=== PATIENT | female | born 1990 | race Caucasian/White ===

== ENCOUNTER 2021-06-26 11:14 | Emergency (ER) | payer OTHER, BC, SELFPAY ==
[2021-06-26] VITALS (10 sets, daily range): BP systolic 118–136; BP diastolic 66–87; PULSE 92–111; RESP 16–18; TEMP 35.6–37.2; O2SAT 98–99
--- NOTE | ~2021-06-26 | CT_ITS ---
EXAMINATION: CT abdomen pelvis wo con DATE: 06/26/2021 18:55 INDICATION: Right flank pain TECHNIQUE: Computed tomography (CT) of the abdomen and pelvis was performed without intravenous contr ast. The dose-length product was 843.83 mGy-cm. Automated exposure control and iterative reconstructi on technique were employed. COMPARISON: CT dated 09/04/2013. FINDINGS: The liver, spleen, pancreas, adrenal glands and kidneys are unremarkable. Nonobstructive costa wel gas pattern. No significant vascular abnormality. No lymphadenopathy. No renal/ureteral stones. N o hydronephrosis. No free air or free fluid. Gallbladder is present. No lymphadenopathy. No acute oss eous abnormality. IMPRESSION: 1. No acute abdominal abnormality Reviewed, dictated and finalized at location A. ISSIONED SECURITY OFFICER
[2021-06-26 12:26] LABS: Add Urine Microscopic? YES; Appearance Urine Cloudy (Clear); Bilirubin Urine Negative (Negative); Blood Urine 3+ (Negative); Color Urine Red (Yellow); Glucose Urine UA Negative (Negative); Ketones Urine Negative (Negative); Leukocyte Esterase Ur 2+ LEU/UL (Negative); Nitrate Urine Negative (Negative); Protein Urine 2+ mg/dL (Negative); RBC Urine >75 /hpf (0-2); Specific Grav Ur 1.019 (1.001-1.035); Urobilinogen Urine Negative mg/dL (<2.0); WBC Urine 31-50 /hpf
--- NOTE | 2021-06-26 19:40 | ED.GENADULT ---
HPI - General Adult General Chief complaint: Urogenital-Female Stated complaint: Blood in Urine Time Seen by Provider: 06/26/21 18:11 Source: patient Mode of arrival: ambulatory Limitations: no limitations History of Present Illness HPI narrative: Patient 30-year-old female with chief complaint of urinary frequency and urgency and hematuria that she noticed today after waking up around 4 AM. Patient states that after noticing hematuria she began feeling a little off. Patient states that she also began having pain to her right flank. Patient denies fever, chills, vomiting, diarrhea. Patient denies history of kidney stones or frequent urinary tract infections. Patient reports being able to ambulate without issue. Patient does not have a urinary retention. Related Data Home Medications Medication Instructions Recorded Confirmed hydroxyzine HCl 06/26/21 sertraline mg 06/26/21 Allergies Allergy/AdvReac Type Severity Reaction Status Date / Time Sulfa (Sulfonamide Allergy Unknown Verified 05/02/19 09:55 Antibiotics) Review of Systems Review of Systems: CONSTITUTIONAL: Denies fever, chills, or sweats. EYES: Denies visual changes, redness, or discharge. ENT: Denies rhinorrhea, congestion, sore throat, or otalgia. CARDIOVASCULAR: Denies chest pain, palpitations, or edema. RESPIRATORY: Denies cough or dyspnea. GASTROINTESTINAL: Denies abdominal pain, nausea, vomiting, or diarrhea. GENITOURINARY: Reports hematuria. SKIN: Denies rash or itching. MUSCULOSKELETAL: Denies back pain, joint pain, or myalgia. NEUROLOGIC: Denies headache, numbness, dizziness, or weakness. PSYCHIATRIC: Denies anxiety or depression. Exam Narrative: GENERAL: Well-appearing, well-nourished, and in no acute distress. HEAD: Normocephalic, atraumatic. EYES: PERRLA and EOMI. CHEST: Clear to auscultation. No respiratory distress. No wheezes rales or rhonchi HEART: Regular rate and rhythm. No murmur heard. Normal peripheral pulses. ABDOMEN: Soft, nontender, nondistended, normal active bowel sounds. EXTREMITIES: Normal range of motion. No edema. SKIN: Warm, dry, no rash. NEURO: No focal deficits. Alert and oriented x3. PSYCH: Normal mood and affect. Course Vital Signs Vital signs: Vital Signs Temperature 96.1 F L 06/26/21 11:48 Pulse Rate 104 H 06/26/21 11:48 Respiratory Rate 18 06/26/21 11:48 Blood Pressure 136/87 06/26/21 11:48 Pulse Oximetry 98 06/26/21 11:48 Temperature 99.0 F 06/26/21 15:14 Pulse Rate 92 06/26/21 20:25 Respiratory Rate 16 06/26/21 20:25 Blood Pressure 118/68 06/26/21 20:25 Pulse Oximetry 99 06/26/21 20:25 Medical Decision Making MDM Narrative Medical decision making narrative: Patient is nontoxic in appearance. Patient not having nausea or vomiting. Patient is not having any intense abdominal pain. Patient not having urinary retention. Patient will be given Levaquin here prescribed Levaquin for 5 days for home. [id number] be cultured and she has been instructed to follow-up with her primary care in 2 to 3 days for urine culture report and reevaluation. Patient has been given strict return to ER instructions if she has any worsening discomfort, urinary retention, fever, chills, abdominal pain or any other emergent symptoms. Patient request Diflucan as urinary tract infection antibiotics caused her to have a yeast infection. Vital Signs Vital Signs: Vital Signs Temperature 96.1 F L 06/26/21 11:48 Pulse Rate 104 H 06/26/21 11:48 Respiratory Rate 18 06/26/21 11:48 Blood Pressure 136/87 06/26/21 11:48 Pulse Oximetry 98 06/26/21 11:48 Temperature 99.0 F 06/26/21 15:14 Pulse Rate 92 06/26/21 20:25 Respiratory Rate 16 06/26/21 20:25 Blood Pressure 118/68 06/26/21 20:25 Pulse Oximetry 99 06/26/21 20:25 Lab Data Labs: Lab Results 06/26/21 Range/Units 12:04 Urine Color Red H (Yellow) Urine Appearance Cloudy H (Clear) Uri
[2021-06-26] MEDS: levoFLOXacin 750 MG TABLET PO (20:19)
== END 2021-06-26 20:26 | disposition home or self-care (01) ==
PROVIDERS: Physician Assistant; Emergency Provider Emergency Medicine
DX: N30.01 Acute cystitis with hematuria (principal)
CPT/HCPCS: 74176; 81001; 81025; 87086; 87088; 99284; A9270

== ENCOUNTER 2021-08-09 10:10 | Emergency (ER) | payer OTHER, BC, SELFPAY ==
[2021-08-09 10:34] VITALS: BP 123/71; PULSE 96; RESP 18; TEMP 36.7; O2SAT 99
--- NOTE | 2021-08-09 10:34 | ED.URI ---
HPI - URI/Sore Throat General Chief Complaint: Upper Respiratory Infection Stated Complaint: fever/flu like symptoms Time Seen by Provider: 08/09/21 10:39 Source: patient, RN notes reviewed and old records reviewed Mode of arrival: ambulatory Limitations: no limitations History of Present Illness HPI Narrative: 30 year old female presents to [facility] care with complaints of sore throat,nasal congestion and drainage, dry cough, fevers up to 103.4F highest recorded fever with chills, sweats, and body aches. Patient reports that she took home COVID test last night and this morning with both results negative. Patient reports that she has had 2 COVID immunizations but has not had Booster or flu immunization this year. Patient reports history of strep throat in the past with 2 episodes this past summer. Patient states pain with swallowing and pain to glands in her neck. Patient has been taking Tylenol and Aleve for pain and fevers. MD elicited complaint: fever, cough, sore throat, rhinorrhea, nasal congestion and other (body aches) Pertinent past history: other (strep) Onset (ago): day(s) (3 days) Consistency: progressively worsening Description of mucous: clear Able to tolerate fluids by mouth: Yes Exacerbating factors: swallowing Relieving factors: NSAID Treatments prior to arrival: acetaminophen and other (Aleve) Related Data Home Medications Medication Instructions Recorded Confirmed hydroxyzine HCl 06/26/21 sertraline 150 mg PO DAILY 06/26/21 Allergies Allergy/AdvReac Type Severity Reaction Status Date / Time Sulfa (Sulfonamide Allergy Unknown Swelling Verified 08/09/21 10:32 Antibiotics) Review of Systems Review of Systems: CONSTITUTIONAL: Positive fever, chills, or sweats. EYES: Denies visual changes, redness, or discharge. ENT: Positive for rhinorrhea, congestion, sore throat, no otalgia. CARDIOVASCULAR: Denies chest pain, palpitations, or edema. RESPIRATORY: Positive for dry cough no dyspnea. GASTROINTESTINAL: Denies abdominal pain, nausea, vomiting, or diarrhea. GENITOURINARY: Denies dysuria or hematuria. SKIN: Denies rash or itching. MUSCULOSKELETAL: Denies back pain, joint pain, positive for body aches NEUROLOGIC: Denies headache, numbness, or weakness. PSYCHIATRIC: Denies anxiety or depression. All systems reviewed & are unremarkable except as noted in HPI and below PMFSH Past Medical History Medical History (Updated 08/09/21 @ 12:11 by Leatha Tracy NP) Anxiety and depression Diverticulitis IBS (irritable bowel syndrome) Surgical History Surgical History (Updated 08/09/21 @ 11:51 by Leatha Tracy NP) History of dental surgery Previous section X2 Family History Family History Father Hypertension Mother Hypertension Grandparent Diabetes mellitus Cerebrovascular accident Acute myocardial infarction Other Family hx of colon cancer Social History Social History (Updated 08/09/21 @ 11:47 by Leatha Tracy NP) Smoking status: Never smoker Alcohol intake: never Substance use: never Living arrangements: with family Gender identity (if verbalized by the patient): Female Comments At time of signature, agree with nursing past medical, surgical, social and family history. There is no relevant family history pertinent to the presenting complaint Exam Narrative: GENERAL Ill-appearing, well-nourished, obese and in no acute distress. HEAD: Normocephalic, atraumatic. EYES: PERRLA and EOMI. ENT: Nares patent with clear rhinorrhea no epistaxis. Mucous membranes moist.TM's normal with good light reflex, throat red, swollen tonsils with white lesions to right tonsil noted, painful swallowing, uvula enlarged and red NECK: Supple. lymphadenopathy CHEST: Clear to auscultation. No respiratory distress.SAO2 99% on room air HEART: Regular rate and rhythm. No murmur heard. Normal peripheral pulses. ABDOMEN: Soft,
== END 2021-08-09 11:51 | disposition home or self-care (01) ==
PROVIDERS: Emergency Provider Registered Nurse
DX: J03.90 Acute tonsillitis, unspecified (principal); F41.9 Anxiety disorder, unspecified; F32.9 Major depressive disorder, single episode, unspecified
CPT/HCPCS: 87081; 87426; 87804; 87880; 99213; C9803; G0463

== ENCOUNTER 2021-08-11 12:27 | Emergency (ER) | payer OTHER, SELFPAY ==
[2021-08-11 12:38] VITALS: BP 109/63; PULSE 99; RESP 16; TEMP 36.9; O2SAT 99
--- NOTE | 2021-08-11 13:12 | ED.URI ---
HPI - URI/Sore Throat General Chief Complaint: Upper Respiratory Infection Stated Complaint: Sore Throat/Fever Time Seen by Provider: 08/11/21 13:12 Source: patient, RN notes reviewed and old records reviewed Mode of arrival: ambulatory Limitations: no limitations History of Present Illness HPI Narrative: 30-year-old female who presents to [facility] Care with complaints of continued sore throat, fevers, and nasal congestion with drainage, pain to her neck with swelling to her glands in her neck also some ear pressure. Patient states that her throat is so sore she can hardly swallow and has been taking antibiotic that was prescribed for tonsillitis on Saturday and also Tylenol and Ibuprofen. Patient's initial strep screen was negative and culture returned today also negative. Patient reports that she is still running fevers of 103F at intervals and this morning her temperature was 102F at 0930 and she took Ibuprofen with patient afebrile in triage. MD elicited complaint: fever and sore throat Related Data Home Medications Medication Instructions Recorded Confirmed hydroxyzine HCl 25 mg PO DAILY 06/26/21 08/11/21 sertraline 150 mg PO DAILY 06/26/21 08/11/21 Allergies Allergy/AdvReac Type Severity Reaction Status Date / Time Sulfa (Sulfonamide Allergy Unknown Swelling Verified 08/11/21 12:51 Antibiotics) Review of Systems Review of Systems: CONSTITUTIONAL: Positive fever, chills, or sweats. EYES: Denies visual changes, redness, or discharge. ENT positive rhinorrhea, congestion, sore throat,pressure to ears. CARDIOVASCULAR: Denies chest pain, palpitations, or edema. RESPIRATORY: Denies cough or dyspnea. GASTROINTESTINAL: Denies abdominal pain, nausea, vomiting, or diarrhea. GENITOURINARY: Denies dysuria or hematuria. SKIN: Denies rash or itching. MUSCULOSKELETAL: Denies back pain, joint pain, or myalgia. NEUROLOGIC: Denies headache, numbness, or weakness. PSYCHIATRIC: Positive history anxiety or depression. All systems reviewed & are unremarkable except as noted in HPI and below PMFSH Past Medical History Medical History (Updated 08/11/21 @ 13:39 by Leatha Tracy NP) Anxiety and depression Diverticulitis IBS (irritable bowel syndrome) Surgical History Surgical History (Updated 08/09/21 @ 11:51 by Leatha L. Demarcus, FARM MACHINERY ERECTOR) History of dental surgery Previous section X2 Family History Family History Father Hypertension Mother Hypertension Grandparent Diabetes mellitus Cerebrovascular accident Acute myocardial infarction Other Family hx of colon cancer Social History Social History (Updated 08/09/21 @ 11:47 by Leatha Tracy NP) Smoking status: Never smoker Alcohol intake: never Substance use: never Gender identity (if verbalized by the patient): Female Comments At time of signature, agree with nursing past medical, surgical, social and family history. There is no relevant family history pertinent to the presenting complaint Exam Narrative: GENERAL: Well-appearing, well-nourished, obese and in no acute distress. HEAD: Normocephalic, atraumatic. EYES: PERRLA and EOMI. ENT: Nares red with clear rhinorrhea or epistaxis. Mucous membranes moist.TM s normal with good light reflex, Throat red with white exudates to tonsils with swelling of tonsils and painful swallowing NECK: Supple. lymphadenopathy with increase pain especially on right side of neck CHEST: Clear to auscultation. No respiratory distress.no cough noted or any shortness of breath SAO2 99% on room air HEART: Regular rate and rhythm. No murmur heard. Normal peripheral pulses. ABDOMEN: Soft, nontender, nondistended, normal active bowel sounds. EXTREMITIES: Normal range of motion. No edema. SKIN: Warm, dry, no rash. NEURO: No focal deficits. Alert and oriented x3. Course Course Level of Care: Express Care Visit Vital Signs Vital signs: Vital Signs Temp
== END 2021-08-11 13:37 | disposition home or self-care (01) ==
PROVIDERS: Emergency Provider Registered Nurse
DX: J03.90 Acute tonsillitis, unspecified (principal); Z20.822 Contact with and (suspected) exposure to COVID-19; F41.9 Anxiety disorder, unspecified; F32.A Depression, unspecified
CPT/HCPCS: 36416; 86308; 87426; 99213; C9803; G0463

== ENCOUNTER 2022-10-18 17:38 | Emergency (ER) | payer OTHER, SELFPAY ==
[2022-10-18 17:49] VITALS: BP 119/67; PULSE 120; RESP 24; TEMP 36.9; O2SAT 98
--- NOTE | 2022-10-18 17:58 | ED.URI ---
HPI - URI/Sore Throat General Chief Complaint: Upper Respiratory Infection Stated Complaint: flu like symptoms Time Seen by Provider: 10/18/22 17:58 Source: patient Mode of arrival: ambulatory Limitations: no limitations History of Present Illness HPI Narrative: Patient is a 32-year-old female presents with 5 days of joint pain, body aches, fever, chills, fatigue along with sore throat that started yesterday. Patient has been taken Tylenol for fever of 101. Patient states she just got back from [place]. The patient has 2 small children but they are not sick at this time. Denies any bug bites, headache, neck pain, congestion, ear pain, cough. Related Data Home Medications Medication Instructions Recorded Confirmed sertraline 100 mg tablet 150 mg PO DAILY 06/26/21 10/18/22 drospirenone 3 mg-ethinyl 1 tablet PO DAILY 10/18/22 10/18/22 estradiol 0.02 mg tablet (Loryna (28)) Allergies Allergy/AdvReac Type Severity Reaction Status Date / Time Sulfa (Sulfonamide Allergy Unknown Swelling Verified 10/18/22 17:59 Antibiotics) Review of Systems Review of Systems: All systems reviewed & are unremarkable except as noted in HPI and below Constitutional: Constitutional: Reports body ache(s), Reports chills, Reports fatigue, Reports fever(s), Denies headache(s), Reports malaise and Denies weakness Eyes: Eyes: Denies loss of vision ENT: Denies otalgia, Denies headache(s), Denies nasal congestion, Denies sinus pain and Reports sore throat Cardiovascular: Cardiovascular: Denies chest pain, Denies irregular heart rhythm and Denies dyspnea Respiratory: Respiratory: Denies cough and Denies dyspnea Gastrointestinal: Gastrointestinal: Denies abdominal pain, Denies melena, Denies hematochezia, Denies diarrhea, Denies nausea and Denies vomiting Musculoskeletal: Musculoskeletal: Denies back pain, Denies myalgias and Denies arthralgias Integumentary/Breasts: Skin/Breast: Denies pruritus and Denies rash Neurologic: Denies headache(s), Denies loss of vision and Denies weakness Psychiatric: Psychiatric: Reports no additional psychiatric complaints PMFSH Past Medical History Medical History (Updated 10/18/22 @ 18:31 by Georgia Bourgeois, GEORGIE) Anxiety and depression Diverticulitis IBS (irritable bowel syndrome) Surgical History Surgical History (Updated 08/09/21 @ 11:51 by Leatha Tracy NP) History of dental surgery Previous section X2 Family History Family History Father Hypertension Mother Hypertension Grandparent Diabetes mellitus Cerebrovascular accident Acute myocardial infarction Other Family hx of colon cancer Social History Social History (Updated 08/09/21 @ 11:47 by Leatha Tracy NP) Smoking status: Never smoker Alcohol intake: never Substance use: never Living arrangements: with family Gender identity (if verbalized by the patient): Female Comments At time of signature, agree with nursing past medical, surgical, social and family history. There is no relevant family history pertinent to the presenting complaint. Exam Const: General: cooperative, healthy appearing, comfortable, no acute distress and well nourished Nutritional Appearance: well nourished Orientation/consciousness: patient oriented x3 Limitations: no limitations HENMT: Head: normal to inspection, normocephalic and atraumatic Ears: hearing grossly normal bilaterally, external ears normal and TM's normal bilaterally Face/Nose/Sinus: Normal external nose present, Normal nares present, Normal nasal mucous membranes and turbinates present, Normal septum present, normal facial exam, sinuses nontender and face symmetric Face and sinus: normal facial exam, sinuses nontender and face symmetric Mouth: Yes Normal oral and palatal mucosa present, Yes lip normal and Yes moist mucous membranes Teeth and gingiva: dentition normal Throat: uvula midl
== END 2022-10-18 18:37 | disposition home or self-care (01) ==
PROVIDERS: Emergency Provider Nurse Practitioner Family; PCP Physician Assistant
DX: J02.9 Acute pharyngitis, unspecified (principal); Z20.822 Contact with and (suspected) exposure to COVID-19; F41.9 Anxiety disorder, unspecified; F32.A Depression, unspecified
CPT/HCPCS: 87426; 87804; 87880; 99213; C9803; G0463

== ENCOUNTER 2023-05-29 08:10 | Emergency (ER) | payer OTHER, SELFPAY ==
--- NOTE | 2023-05-29 08:15 | ED.GENADULT ---
HPI - General Adult General Chief complaint: Neck Pain/Injury Stated complaint: Neck Pain,Rt Shoulder Pain Source: patient and RN notes reviewed History of Present Illness HPI narrative: 32 yo F presents to urgent care with complaints of right lateral neck pain that radiates to right posterior/upper shoulder and down right arm. Pt states this has been going on for 4 days but last night in the middle of the night, it got worse. Pt reports weakness in her right arm. Pt states she was hanging curtains, using a drill above her head prior to this starting. Pt denies any specific injury. Pt has been taking ibuprofen and her left over cyclobenzaprine, which she only has 2 pills left, with moderate relief. Related Data Home Medications Medication Instructions Recorded Confirmed cetirizine 10 mg capsule (Zyrtec) 10 mg PO DAILY PRN allergies 10/24/22 05/29/23 ergocalciferol (vitamin D2) 1,250 1,250 mcg PO DAILY 10/24/22 05/29/23 mcg (50,000 unit) capsule Allergies Allergy/AdvReac Type Severity Reaction Status Date / Time Sulfa (Sulfonamide Allergy Unknown Swelling Verified 04/26/23 16:21 Antibiotics) Review of Systems Review of Systems: CONSTITUTIONAL: Denies fever, chills, or sweats. EYES: Denies visual changes, redness, or discharge. ENT: Denies otalgia and sore throat CARDIOVASCULAR: Denies chest pain, palpitations, or edema. RESPIRATORY: Denies cough or dyspnea. GASTROINTESTINAL: Denies abdominal pain, nausea, vomiting, or diarrhea. GENITOURINARY: Denies dysuria or hematuria. SKIN: Denies rash or itching. NEUROLOGIC: Denies headache, numbness Pertinent positives per HPI. [facility] Past Medical History Medical History Anxiety and depression IBS (irritable bowel syndrome) Major depression in partial remission Surgical History Surgical History History of dental surgery Previous section X2 Family History Family History Father Hypertension Mother Hypertension Grandparent Diabetes mellitus Cerebrovascular accident Acute myocardial infarction Other Family hx of colon cancer Social History Social History (Updated 04/28/23 @ 09:32 by KIARA Salgado) Smoking status: Current some day smoker Tobacco type: e-cigarettes/vaping Alcohol intake: former Drinks per week: 0 Substance use: former Substance use type: marijuana Lack of Transportation: No Lack of Food: Never True Current Housing: I Have Housing Concerned About Future Housing: No Difficulty Paying Gas/Electric Bills: No Difficulty Paying for Meds: No Currently Unemployed: YES Education: Trade/Vocational Certificate Difficulty w/ Childcare or Family Care: No Living arrangements: with family Occupation/Education: student Gender identity (if verbalized by the patient): Female Sexual Orientation (if Verbalized by the Patient): Straight or Heterosexual Comments At the time of my signature, I reviewed and agree with the nursing past medical, surgical, social, and family history. There is no relevant family history pertinent to the patient complaint. Exam Narrative: GENERAL: This is a well-nourished, well-developed patient, in no apparent distress. HEAD: normocephalic, atraumatic. EYES: Sclera clear/white. Vision is grossly intact. EARS: External ears normal, auditory canals clear and without drainage, TMs normal without perforation. Hearing grossly intact. NOSE: External nose normal with no obvious nasal discharge, nares without redness, no rhinorrhea. THROAT: Mucous membranes moist, posterior pharynx clear. NECK: Neck supple, without lymphadenopathy, masses or thyromegaly. Pt limited ROM with neck in all directions due to pain in the right lateral neck. CARDIOVASCULAR: Regular rate and rhythm without murmurs, gallops,
[2023-05-29 08:22] VITALS: BP 123/72; PULSE 84; RESP 18; TEMP 36.2; O2SAT 99
[2023-05-29] MEDS: predniSONE 20 MG TABLET 60 MG PO (08:48)
== END 2023-05-29 08:54 | disposition home or self-care (01) ==
PROVIDERS: Emergency Provider Nurse Practitioner Family; PCP Physician Assistant
DX: M54.12 Radiculopathy, cervical region (principal); F17.290 Nicotine dependence, other tobacco product, uncomplicated; Z79.899 Other long term (current) drug therapy
CPT/HCPCS: 99213; G0463; J7512

== ENCOUNTER 2023-08-26 08:39 | Outpatient (CLI) | payer OTHER, SELFPAY ==
--- NOTE | 2023-09-10 19:07 | WPDHOMESLEEP ---
Sleep Study - Home Unattended Date of Study: 08/26/23 Ordering Provider: KIARA Salgado Interpreting Provider: Mari Zaragoza MD Home Sleep Study Type: Watch PAT Height: 1.7 m Weight: 109.316 kg Body Mass Index: 37.7 Neck Circumference (inches): 15 [place]: 9 Reason for Sleep Study Harsh loud snoring, restless sleep Sleep History Starla Monahan is a 33-year-old woman with very restless sleep and loud snoring. She has tried melatonin to help her stay asleep but this is not helping. She does not have difficulty falling asleep simply staying asleep. She is always tired and never feels rested. She has used nasal strips to help with snoring without improvement. She is usually exhausted by midmorning. There is a family history of sleep issues, her father has obstructive sleep apnea and her sister has insomnia. She rarely awakens from sleep short of breath. She rarely wakes at night with heartburn, belching or coughing.??She constantly snores, and constantly snores loudly enough that others complain. She frequently has trouble sleeping when she has a cold. She occasionally wakes up gasping for breath during the night. She constant has breathing problems at night. She constantly sweats excessively at night. She frequently notices her heart pounding or beating irregularly during the night. She frequently falls asleep during the day. She occasionally falls asleep involuntarily, never falls asleep while driving. She rarely experiences loss of muscle tone with strong emotion. she constantly has daytime difficulties due to excessive sleepiness. She rarely feels paralyzed on waking or falling asleep. She constantly experiences vivid dreams upon waking or falling asleep. She never feels afraid of going to sleep. She frequently has nightmares. She constantly recalls her dreams. She frequently has thoughts racing through her mind. She occasionally feels sad or depressed. She frequently feels anxiety. She frequently notices parts of her body jerk. She occasionally kicks during the night. She occasionally feels crawling or aching feelings in her legs. She occasionally feels leg pain at night. She rarely has morning jaw pain, and rarely grinds her teeth at night. She occasionally feels bothered by pain during the day, is rarely awakened by pain during the night. She frequently wakes up feeling stiff in the morning, frequently wakes feeling sore or achy in the morning. She occasionally awakens with pain in her neck, spine, or joints. she has memory concentration difficulties, headaches, bowel disturbances, fatigue and nightmares. Her snoring is so loud that her significant other does not want to sleep in the same bed Normal bedtime is 9:30 p.m., falling asleep within 15-30 minutes, waking 3-4 times during the night. While awake, she checks the clock, turns over and tries to return to sleep which she is usually able to do within 15 minutes. Her normal wake time is 4:00 a.m. on weekdays and weekends. On weekends, she stays awake a little longer, goes to bed between 10:00 p.m. and 11:00 p.m. She reports getting 5 hours of sleep per night. She does not take naps in the afternoon or evening. A short nap lasting 10-15 minutes is not refreshing. Most of the time she feels adequate on waking but shortly thereafter she feels exhausted. She feels better in the morning compared to other times of day. Habits:??Tobacco: Quit 10 years ago Caffeine: 2 cups per day. Alcohol: none Recreational substances: none PMFSH Past Medical History Medical History Anxiety and depression IBS (irritable bowel syndrome) Major depression in partial remission Surgical History Surgical History History of dental surgery Previous section X2 Family History Family History Father Hypertensio
[2023-09-10 19:18] VITALS: BMI 37.7
== END 2023-08-27 07:30 | disposition home or self-care (01) ==
LOC: ANHCSM 08:41
PROVIDERS: PCP Family Medicine; Visit Provider Physician Assistant
DX: G47.33 Obstructive sleep apnea (adult) (pediatric) (principal); R06.83 Snoring; F39 Unspecified mood [affective] disorder
CPT/HCPCS: 95800

== ENCOUNTER 2023-11-06 08:11 | Emergency (ER) | payer OTHER, SELFPAY ==
[2023-11-06 08:19] VITALS: BP 107/61; PULSE 90; RESP 16; TEMP 36.5; O2SAT 99
--- NOTE | 2023-11-06 08:47 | ED.URI ---
HPI - URI/Sore Throat General Chief Complaint: Upper Respiratory Infection Stated Complaint: Sinus Pressure,Cough,Congestion Time Seen by Provider: 11/06/23 08:47 Source: patient Mode of arrival: ambulatory Limitations: no limitations History of Present Illness HPI Narrative: 33-year-old female presents with complaint of nasal congestion, sinus pressure, pain and pressure to bilateral ears, fatigue for 5 days. Afebrile. Patient takes Zyrtec and uses Flonase daily. States yesterday she lost her sense of smell and is concerned she may have COVID. Denies nausea vomiting diarrhea. All systems reviewed and negative except as noted above. Related Data Home Medications Medication Instructions Recorded Confirmed cetirizine 10 mg capsule (Zyrtec) 10 mg PO DAILY PRN allergies 10/24/22 11/06/23 ergocalciferol (vitamin D2) 1,250 1,250 mcg PO DAILY 10/24/22 11/06/23 mcg (50,000 unit) capsule Allergies Allergy/AdvReac Type Severity Reaction Status Date / Time Sulfa (Sulfonamide AdvReac Intermediate Swelling Verified 11/06/23 08:16 Antibiotics) Review of Systems Review of Systems: CONSTITUTIONAL: Denies fever, chills, or sweats. EYES: Denies visual changes, redness, or discharge. ENT: Reports rhinorrhea, congestion, sore throat, and otalgia. CARDIOVASCULAR: Denies chest pain, palpitations, or edema. RESPIRATORY: reports cough. Denies dyspnea. GASTROINTESTINAL: Denies abdominal pain, nausea, vomiting, or diarrhea. GENITOURINARY: Denies dysuria or hematuria. SKIN: Denies rash or itching. MUSCULOSKELETAL: Denies back pain, joint pain, or myalgia. NEUROLOGIC: Denies headache, numbness, or weakness. PSYCHIATRIC: Denies anxiety or depression. All other systems reviewed are negative, except as documented in HPI. [facility] Past Medical History Medical History Anxiety and depression IBS (irritable bowel syndrome) Major depression in partial remission Surgical History Surgical History History of dental surgery Previous section X2 Family History Family History Father Hypertension Mother Hypertension Grandparent Diabetes mellitus Cerebrovascular accident Acute myocardial infarction Other Family hx of colon cancer Social History Social History (Updated 09/16/23 @ 11:15 by Ann Marie Schmidt MA) Smoking status: Current some day smoker Tobacco type: e-cigarettes/vaping Alcohol intake: former Drinks per week: 0 Substance use: former Substance use type: marijuana Do You Feel Safe in your Home?: Yes Lack of Transportation: No Lack of Food: Never True Current Housing: I Have Housing Concerned About Future Housing: No Difficulty Paying Gas/Electric Bills: No Difficulty Paying for Meds: No Currently Unemployed: YES Education: Trade/Vocational Certificate Difficulty w/ Childcare or Family Care: No Living arrangements: with family Occupation/Education: student Gender identity (if verbalized by the patient): Female Sexual Orientation (if Verbalized by the Patient): Straight or Heterosexual Comments At time of signature, agree with nursing past medical, surgical, social and family history. There is no relevant family history pertinent to the presenting complaint. Exam Narrative: GENERAL: This is a well-nourished, well-developed patient, in no apparent distress. HEAD: normocephalic, atraumatic. EYES: PERRL. Sclera clear/white. Vision is grossly intact. EARS: External ears normal, auditory canals clear and without drainage, yellowish fluid to bilateral TMs with bulging And mild erythema. No perforation bilaterally.. Hearing grossly intact. NOSE: External nose normal with congestion, erythema and swelling to bilateral nares. Ethmoid and maxillary sinus tenderness on palpation bilaterally. T
== END 2023-11-06 09:15 | disposition home or self-care (01) ==
PROVIDERS: Emergency Provider Nurse Practitioner Family; PCP Family Medicine
DX: H65.03 Acute serous otitis media, bilateral (principal); J30.9 Allergic rhinitis, unspecified; Z20.822 Contact with and (suspected) exposure to COVID-19; F17.290 Nicotine dependence, other tobacco product, uncomplicated
CPT/HCPCS: 87426; 99213; G0463

== ENCOUNTER 2024-09-04 08:15 | Emergency (ER) | payer OTHER, SELFPAY ==
--- OUTSIDE RECORDS SUMMARY | 2024-09-04 08:35 | XMS_ITS | Encounter Summary ---
Author Organization [facility] Address [address] [place] [address] Phone Care Team Providers Care Automatic Blocker Name Role Phone No, Physician Primary Care Provider Gracie Lee Primary Care Provider [phone] Encounter Details Date Type Department Care Team (Latest Contact Info) Description 06/10/2017 Orders Only [facility] CONVERSION Scanning, Provider Social History Tobacco Use Types Packs/Day Years Used Date Smoking Tobacco: Never Comments Unknown Sex and Gender Information Value Date Recorded Sex Assigned at Not on file Legal Sex Female 10:12 AM EVENING OR NIGHT NURSE SUPERVISOR Gender Identity Not on file Sexual Orientation Not on file documented as of this encounter Plan of Treatment Not on file documented as of this encounter Procedures Procedure Name Priority Date/Time Associated Diagnosis Comments OBSTETRIC/GYNECOLOGY ULTRASONOGRAPHY REPORT 07/04/2017 4:19 PM EVENING OR NIGHT NURSE SUPERVISOR OBSTETRIC/GYNECOLOGY ULTRASONOGRAPHY REPORT 06/10/2017 9:36 AM EVENING OR NIGHT NURSE SUPERVISOR documented in this encounter Results * OBSTETRIC/GYNECOLOGY ULTRASONOGRAPHY REPORT (07/04/2017 4:19 PM EVENING OR NIGHT NURSE SUPERVISOR) Anatomical Region Laterality Modality Ultrasound us Provider Scanning IMG OB US PROCEDURES Final Res ult * OBSTETRIC/GYNECOLOGY ULTRASONOGRAPHY REPORT (06/10/2017 9:36 AM EVENING OR NIGHT NURSE SUPERVISOR) Anatomical Region Laterality Modality Ultrasound us Provider Scanning IMG OB US PROCEDURES Final Res ult documented in this encounter Visit Diagnoses Not on filedocumented in this encounter Care Teams Automatic Blocker Relationship Specialty Start Date End Date No, Physician PCP - General 06/10/17 01/19/24 Gracie Lee PA [address] [place] [address] PCP - General Family Medicine 01/20/24 documented as of this encounter
--- OUTSIDE RECORDS SUMMARY | 2024-09-04 08:35 | XMS_ITS | Referral Summary ---
Author Organization [facility] Address [address] [place] [address] Care Team Providers Care Operations Trainer Name Role Phone Gracie Lee PA-C Primary Care Provider [phone] Source Comments [facility],non-owned Affiliates and Associated Physician Practices is amultiple site organization consisting of ambulatory clinics and hospital sitesin [place], [place], [place] and [place]. This disclosure is being madepursuant to the Care Everywhere program and may not contain all information available regarding this patient. Last updated 18.[facility] Allergies Active Allergy Reactions Criticality Noted Date Comments [place] Oil Rash Medium 10/10/2017 [place] Dust Mite Extract Rash Medium 10/10/2017 Sulfa Drugs Swelling Low 04/30/2012 Medications * Be aware that medications may not be up to date on this document. Alwaysverify current medications with the patient. Medication Sig Dispensed Refills Start Date End Date Status hydrOXYzine hcl (ATARAX) 25 MG tabletIndications:Anx iety Take 1 (one) tablet by mouth 4 times daily as needed Reasons: Feeling Anxious 30 tablet 12/07/2020 Active sertraline (ZOLOFT) 50 MG tabletIndications:Anx iety and depression Take 1 (one) tablet by mouth once daily With one 100 mg tab to = 150 mg dose 90 tablet 1 01/23/2022 Active sertraline (ZOLOFT) 100 MG tabletIndications:Anx iety and depression Take 1 (one) tablet by mouth once daily With one 50mg tab to =150mg dose 90 tablet 1 01/23/2022 Active vitamin D, ergocalciferol, (Drisdol) 1.25 MG (50669 UT) capsule Take 1 (one) capsule by mouth every 7 days 02/02/2022 Active drospirenone-ethinyl estradiol (Meme) 3-0.02 MG tablet Take 1 (one) tablet by mouth once daily 09/08/2023 Active buPROPion XL 24hr (Wellbutrin-XL) 150 MG tablet Take 1 (one) tablet by mouth every morning 09/03/2023 Active cetirizine (ZyrTEC) 10 MG tablet Take 1 (one) tablet by mouth once daily Active fluticasone propionate (Flonase) 50 MCG/ACT nasal spray [place] 2 (two) sprays into each nostril once daily Active ibuprofen (Motrin) 600 MG tablet Take 1 (one) tablet by mouth every 6 hours as needed for Pain Active azelastine (Astelin) 0.1 % nasal sprayIndications:Nasa l obstruction [place] 1 (one) spray into each nostril 2 times daily 90 mL 4 09/19/2023 Active Active Problems Problem Noted Date Diagnosed Date Dysfunction of both eustachian tubes 05/14/2021 Assessment & Plan (05/14/2021 12:17 PM CDT): Sudafed 4 hour as needed Ibuprofen 2 tabs every 6 hours as needed. Drink fluids Enlarged lymph node 03/28/2020 Assessment & Plan (03/28/2020 1:51 PM CDT): Unclear etiology. Size is relatively large and nodule is relatively firm. Will get ultrasound and labs. Consider biopsy, especially pending ultrasound results. NICOLE III (cervical intraepith elial neoplasia grade III) with severe dysplasia 11/11/2017 Family history of other specified eye disorder 1 Overview (10/14/2017): Mari's - father Resolved Problems Problem Noted Date Diagnosed Date Resolved Date and not yet delivered 11/11/2017 09/02/2019 Immunizations Name Administration Dates Next Due INFLUENZA VACCINE 06/13/2019 Rho D Immune Globulin 11/13/2017 iNFLUENZA VACCINE, RECOM-AMIN, QUADR. (FLUBLOCK QUADRIVALENT; 18Y+) (RIV4) 03/28/2020 Social History Tobacco Use Types Packs/Day Years Used Date Smoking Tobacco: Former Cigarettes Smokeless Tobacco: Never Tobacco Cessation:Counseling Given: Not Answered Comments:lightly with period remission Alcohol Use Standard Drinks/Week Comments Not Currently 0.8 (1 standard drink = 0.6 oz p ure alcohol) rare PHQ-2 Answer Date Recorded PHQ2 TOTAL SCORE 0 12/25/2020 Sex and Gender Information Value Date Recorded Sex Assigned at Not on file Gender Identity Not on file Sexual Orientation Not on file Last Filed Vital Signs Vital Sign Reading Time Taken Comments Blood Pressure 120/82 06/15/2021 4:59 PM INSTRUCTION ASSISTANT PRINCIPAL Pulse 98 06/15/2021 4:59 PM INSTRUCTION ASSISTANT PRINCIPAL Temperature 37 C (98.6 F) 06/15/2021 4:59 PM INSTRUCTION ASSISTANT PRINCIPAL Respiratory Rate 16 06/15/2021 4:59 PM INSTRUCTION ASSISTANT PRINCIPAL Oxygen Saturation 97% 06/15/2021 4:59 PM INSTRUCTION ASSISTANT PRINCIPAL Inhaled Oxygen Concentration - - Weight 108.9 kg (240 lb) 09/27/2023 9:35 AM CDT Height 170.2 cm (5' 7 ) 09/27/2023 9:35 AM CDT Body Mass Index 37.59 09/27/2023 9:35 AM CDT Plan of Treatment Not on file Procedures Procedure Name Priority Date/Time Associated Diagnosis Comments HEPATITIS C AB W RFLX VERIFICATION Routine 04/04/2020 2:45 PM CDT Enlarged lymph node HIV-1 HIV-2 ANTIBODY W REFLX Routine 04/04/2020 2:45 PM CDT Enlarged lymph node from Last 3 Months or Most Recently Relevant to Health Maintenance Results * HEPATITIS C AB W RFLX VERIFICATION (04/04/2020 2:45 PM CDT) Hepatitis C Antibody <0.1 0.0 - 0.9 s/co ratio 04/06/2020 11:09 AM CDT [facility] ([facility]) Blood BLOOD SPECIMEN / Unknown Lab Venipuncture / Unknown 04/04/2020 2:45 PM CDT 04/04/2020 3:21 PM CDT Narrative [facility] ([facility]) - 04/06/2020 11:09 AM CDT Performed at: [facility] [address] [place] [id number] Information Security Manager: Domenico Gallagher PhD, Phone: [phone] Blaise Davidson MD LAB - CHEMISTRY [place] [facility] ([facility]) [address] [place] [address] * HIV-1 HIV-2 ANTIBODY W REFLX (04/04/2020 2:45 PM CDT) [facility] HIV-1 Antibody Negative Negative 04/07/2020 11:06 PM CDT [facility] ([facility]) HIV-2 Antibody Negative Negative 04/07/2020 11:06 PM CDT [facility] ([facility]) Interpretation Negative 04/07/2020 11:06 PM CDT [facility] ([facility]) Comment:See RNA Reflex. Blood BLOOD SPECIMEN / Unknown Lab Venipuncture / Unknown 04/04/2020 2:45 PM CDT 04/04/2020 3:22 PM CDT Narrative [facility] ([facility]) - 04/07/2020 11:06 PM CDT Performed at: [facility] [id number] [place], [place] [id number] Information Security Manager: Domenico Gallagher PhD, Phone: [phone] Blaise Davidson MD LAB - SEROLOGY ORDER GAB [facility] ([facility]) [address] [place] [address] from Last 3 Months or Most Recently Relevant to Health Maintenance Care Teams Operations Trainer Relationship Specialty Start Date End Date Gracie Lee PA-C [address] [place] [address] ERICK POLLACK [id number] PCP - General Physician Decorative Engraver Apprentice 09/27/23
--- OUTSIDE RECORDS SUMMARY | 2024-09-04 08:35 | XMS_ITS | Encounter Summary ---
Author Organization [facility] Health Address [address] [place] [address] Care Team Providers Care Mental Health Nurse Practitioner Name Role Phone Savanah Guerrero Primary Care Provider [phone] Gracie Lee PA-C Primary Care Provider Reason for Visit * Reason Onset Date Comments MEDICATION REFILL 08/14/2022 Encounter Details Date Type Department Care Team (Late st Contact Info) Description 08/14/2022 Refill [facility] [address] [place] [phone] Savanah Guerrero APRN-CNP [address] [place] [phone] MEDICATION REFILL Social History Tobacco Use Types Packs/Day Years Used Date Smoking Tobacco: Former Cigarettes Smokeless Tobacco: Never Comments:lightly with period remission Alcohol Use Standard [...] on file documented as of this encounter Visit Diagnoses Diagnosis Anxiety and depression Dysthymic disorder documented in this encounter Care Teams Mental Health Nurse Practitioner Relationship Specialty Start Date End Date Savanah Guerrero APRN-BUTTONHOLE MAKER HAND PCP - General 08/26/19 09/26/23 Gracie Lee PA-C [address] [place] [address] PCP - General Physician Image Scientist 09/27/23 documented as of this encounter
--- OUTSIDE RECORDS SUMMARY | 2024-09-04 08:35 | XMS_ITS | Clinical Summary ---
Author Organization [facility] [address] [facility] [address] Address [address] [place] [address] Care Team Providers Care Kiln Repairer Name Role Phone Gracie Lee Primary Care Provider Surgical History Surgery Date Site/Laterality Comments CT DELIVERY ONLY Section - (Added by TW Conv) WRIST SURGERY Wrist Surgery - (Added by TW Conv) ORAL SURGERY Oral Surgery - (Added by Conv) Medical History Medical History Date Comments Personal history of other di seases of the musculoskeletal system and connective tissue History o f ganglion cyst - (Added by TW Conv) Family History Medical History Relation Name Comments Diabetes Father Family history of diabetes mellitus - (Added by TW Conv) Hypertension Father Family history of hypertension - (Added by TW Conv) Diabetes Maternal Grandfather Family history of diabetes mellitus - Relation: Grandfather (Added by TW Conv) Hypertension Maternal Grandfather Family history of hypertension - Relation: Grandfather (Added by TW Conv) Stroke Maternal Grandfather Family history of cerebrovascular accident (CVA) - Relation: Grandfather (Added by TW Conv) Relation Name Status Comments Father Maternal Grandfather Social History Tobacco Use Types Packs/Day Years Used Date Smoking Tobacco: Never Personal Safety Answer Date Recorded Getting School Help Needed Not on file 12/31 Comments Unknown Sex and Gender Information Value Date Recorded Sex Assigned at Not on file Legal Sex Female 10:12 AM ASSISTANT SUPERINTENDENT FOR CURRICULUM Gender Identity Not on file Sexual Orientation Not on file Obstetrics History Last Filed Vital Signs Vital Sign Reading Time Taken Comments Blood Pressure 112/78 06/10/2017 9:42 AM ASSISTANT SUPERINTENDENT FOR CURRICULUM Pulse - - Temperature - - Respiratory Rate - - Oxygen Saturation - - Inhaled Oxygen Concentration - - Weight 108.9 kg (239 lb 15.9 oz) 06/10/2017 9:42 AM ASSISTANT SUPERINTENDENT FOR CURRICULUM Height 170.2 cm (5' 7 ) 06/10/2017 9:42 AM ASSISTANT SUPERINTENDENT FOR CURRICULUM Body Mass Index 37.59 06/10/2017 9:42 AM ASSISTANT SUPERINTENDENT FOR CURRICULUM Plan of Treatment Health Maintenance Due Date Last Done Comments Cervical Cancer Screening 1989 Depression Screening 1989 Hepatitis C Screening 1989 DTaP/Tdap/Td Vaccine (1 - Tdap) 2000 Varicella Vaccines (1 of 2 - 13+ 2-dose series) 2002 Hepatitis B Screening 2007 Regular Well Visit/Exam 18-64 2007 Covid-19 Vaccine (3 - 2023-2 5 season) 2024 10/19/2020, 09/21/2020 Influenza Vaccine (#1) 2024 , 06/13/2019 HPV Vaccines Aged Out No longer eligi ble based on patient's age to complete this topic Pneumococcal vaccine <65 Aged Out No longer eligible based on patient's age to complete this topic Insurance [facility] Care Teams Kiln Repairer Relationship Specialty Start Date End Date Gracie Lee PA [address] [place] [id number] PCP - General Family Medicine 01/20/24
--- OUTSIDE RECORDS SUMMARY | 2024-09-04 08:35 | XMS_ITS | Clinical Summary ---
Author Organization [facility] Address [address] [place] [address] Care Team Providers Care Metal Dealer Name Role Phone Gracie Lee PA-C Primary Care Provider [phone] Source Comments [facility],non-owned Affiliates and Associated Physician Practices is amultiple site organization consisting of ambulatory clinics and hospital sitesin [place], [place], [place] and [place]. This disclosure is being madepursuant to the Care Everywhere program and may not contain all information available regarding this patient. Last updated 18.[facility] Allergies Active Allergy Reactions Criticality Noted Date [...] Active vitamin D, ergocalciferol, (Drisdol) 1.25 MG (25945 UT) capsule Take 1 (one) capsule by [...] fluticasone propionate (Flonase) 50 MCG/ACT nasal spray [place] 2 (two) sprays into each nostril once daily Active ibuprofen (Motrin) 600 MG tablet Take 1 (one) tablet by mouth every 6 hours as needed for Pain Active azelastine (Astelin) 0.1 % nasal sprayIndications:Nasa l obstruction [place] 1 (one) spray into each nostril 2 [...] RECOM-AMIN, QUADR. (FLUBLOCK QUADRIVALENT; 18Y+) (RIV4) 03/28/2020 Family History Medical History Relation Name Comments Depression Father Diabetes Father type 2 Hypertension Father Macular Degeneration Father Cancer Maternal Aunt Cancer - Other Maternal Grandmother Cancer Maternal Uncle Anxiety Disorder Mother Depression Mother Sjogren's Syndrome Mother CVA Paternal Aunt CAD (Coronary Artery Disease) Paternal Grandfather CVA Paternal Grandfather Dementia Paternal Grandfather Diabetes - Type 2 Paternal Grandfather Glaucoma Paternal Grandfather Dementia Paternal Grandmother Relation Name Status Comments Father Alive Maternal Aunt Maternal Grandfather Alive Maternal Grandmother Maternal Uncle Mother Alive Paternal Aunt Paternal Grandfather Paternal Grandmother Alive Social History Tobacco Use Types Packs/Day Years [...] Comments Blood Pressure 120/82 06/15/2021 4:59 PM IRONER SOCK Pulse 98 06/15/2021 4:59 PM IRONER SOCK Temperature 37 C (98.6 F) 06/15/2021 4:59 PM IRONER SOCK Respiratory Rate 16 06/15/2021 4:59 PM IRONER SOCK Oxygen Saturation 97% 06/15/2021 4:59 PM IRONER SOCK Inhaled Oxygen Concentration - - Weight 108.9 kg (240 lb) 09/27/2023 9:35 AM CDT Height 170.2 cm (5' 7 ) 09/27/2023 9:35 AM CDT Body Mass Index 37.59 09/27/2023 9:35 AM CDT Plan of Treatment Health Maintenance Due Date Last Done Comments PAP SMEAR 1989 DTAP/TDAP/TD VACCINES (1 - Tdap) 2008 HEPATITIS B VACCINE (1 of 3 - 19+ 3-dose series) 2008 COVID-19 VACCINE (2023-2 5 season) 2024 INFLUENZA VACCINE (#1) 2024 0, 06/13/2019 DEPRESSION SCREENING 07/15/2024 ZOSTER VACCINE (1 of 2) 2039 HEPATITIS C SCREENING Completed 04/04/2020 HIV SCREENING Completed 04/04/2020 HIB VACCINE Aged Out No longer eligi ble based on patient's age to complete this topic HPV VACCINE Aged Out No longer eligi ble based on patient's age to complete this topic MENINGOCOCCAL (Group B) VACCINE Aged Out No longer eligible b ased on patient's age to complete this topic MENINGOCOCCAL VACCINE Aged Out No elda guero eligible based on patient's age to complete this topic PNEUMOCOCCAL VACCINE Aged Out No long er eligible based on patient's age to complete this topic Procedures Procedure Name Priority Date/Time Associated Diagnosis [...] 0.9 s/co ratio 04/06/2020 11:09 AM CDT [facility] ([facility]) Blood BLOOD SPECIMEN / Unknown Lab Venipuncture / Unknown 04/04/2020 2:45 PM CDT 04/04/2020 3:21 PM CDT Narrative [facility] ([facility]) - 04/06/2020 11:09 AM CDT Performed at: [facility] [address] [place], [place] [id number] Hazardous Material Specialist: Domenico Gallagher PhD, Phone: [phone] Blaise Davidson MD LAB - CHEMISTRY [place] [facility] ([facility]) [address] [place] [address], [facility] * HIV-1 HIV-2 ANTIBODY W REFLX (04/04/2020 2:45 PM CDT) HIV-1 Antibody Negative Negative 04/07/2020 11:06 PM CDT [facility] ([facility]) HIV-2 Antibody Negative Negative 04/07/2020 11:06 PM CDT [facility] ([facility]) Interpretation Negative 04/07/2020 11:06 PM CDT [facility] ([facility]) Comment:See RNA Reflex. Blood BLOOD SPECIMEN / Unknown Lab Venipuncture / Unknown 04/04/2020 2:45 PM CDT 04/04/2020 3:22 PM CDT Narrative [facility] ([facility]) - 04/07/2020 11:06 PM CDT Performed at: 01 - [facility] [address] [place], [place] [id number] Hazardous Material Specialist: Domenico Gallagher PhD, Phone: [phone] Blaise Davidson MD LAB - SEROLOGY ORDER GAB [facility] ([facility]) [address] [place] [address] from Last 3 Months or Most Recently Relevant to Health Maintenance Care Teams Metal Dealer Relationship Specialty Start Date End Date Gracie Lee PA-C [address] [place] [address] PCP - General Physician Senior Report Developer 09/27/23
--- OUTSIDE RECORDS SUMMARY | 2024-09-04 08:35 | XMS_ITS | Referral Summary ---
Author Organization [facility] [address] Address [address] [place] [address] Care Team Providers Care Pipe Line Maintenance Supervisor Name Role Phone Gracie Lee Primary Care Provider [phone] Social History Tobacco Use Types Packs/Day Years Used Date Smoking Tobacco: Never Personal Safety Answer Date Recorded Getting School Help Needed Not on file 12/31 Comments Unknown Sex and Gender Information Value Date Recorded Sex Assigned at Not on file Legal Sex Female 10:12 AM BRAILLE TRANSCRIBER Gender Identity Not on file Sexual Orientation Not on file Last Filed Vital Signs Vital Sign Reading Time Taken Comments Blood Pressure 112/78 06/10/2017 9:42 AM BRAILLE TRANSCRIBER Pulse - - Temperature - - Respiratory Rate - - Oxygen Saturation - - Inhaled Oxygen Concentration - - Weight 108.9 kg (239 lb 15.9 oz) 06/10/2017 9:42 AM BRAILLE TRANSCRIBER Height 170.2 cm (5' 7 ) 06/10/2017 9:42 AM BRAILLE TRANSCRIBER Body Mass Index 37.59 06/10/2017 9:42 AM BRAILLE TRANSCRIBER Plan of Treatment Not on file Insurance [facility] Care Teams Pipe Line Maintenance Supervisor Relationship Specialty Start Date End Date Gracie Lee PA [address] [place] [address] PCP - General Family Medicine 01/20/24
--- OUTSIDE RECORDS SUMMARY | 2024-09-04 08:35 | XMS_ITS | Encounter Summary ---
Author Organization [facility] Address [address] [place] [address] Care Team Providers Care Product Technician Name Role Phone None, Provider Primary Care Provider Shital shetty Encounter Details Date Type Department Care Team (Late st Contact Info) Description 11/19/2017 Hospital Follow-up Call [facility] [place] [address] Michaela Thomas, RN Social History Tobacco Use Types Packs/Day Years Used Date Smoking Tobacco: Former Cigarettes 0.5 4 0 07/15/2009 - 07/15/2013 Smokeless Tobacco: Never Alcohol Use Standard Drinks/Week Comments No 0 (1 standard drink = 0.6 oz pur e alcohol) Comments No Sex and Gender Information Value Date Recorded Sex Assigned at Not on file Legal Sex Female 3:41 PM [employer]PER[employer] Gender Identity Not on file Sexual Orientation Not on file documented as of this encounter Plan of Treatment Not on file documented as of this encounter Visit Diagnoses Not on filedocumented in this encounter Care Teams Product Technician Relationship Specialty Start Date End Date None, Provider, PCP - General 07/03/18 documented as of this encounter
--- OUTSIDE RECORDS SUMMARY | 2024-09-04 08:35 | XMS_ITS | Patient Health Summary ---
Author Organization [facility] Address [address] [place] [address] Care Team Providers Care Design Analyst Name Role Phone Gracie Lee PA-C Primary Care Provider Note from [facility],non-owned Affiliates and Associated Physician Practices is amultiple site organization consisting of ambulatory clinics and hospital sitesin [place], [place], [place] and [place]. This disclosure is being madepursuant to the Care Everywhere program and may not contain all information available regarding this patient. Last updated 18.[facility] Allergies * Cedarwood Oil(Rash) -Medium Criticality * Dust Mite Extract(Rash) -Medium Criticality * Sulfa Drugs(Swelling) -Low Criticality Medications * Be aware that medications may not be up to date on this document. Alwaysverify current medications with the patient. * hydrOXYzine hcl (ATARAX) 25 MG tablet(Started 12/07/2020) Take 1 (one) tablet by mouth 4 times daily as needed Reasons: Feeling Anxious * sertraline (ZOLOFT) 50 MG tablet(Started 01/23/2022) Take 1 (one) tablet by mouth once daily With one 100 mg tab to = 150 mg dose 1 refill by 01/23/2023 * sertraline (ZOLOFT) 100 MG tablet(Started 01/23/2022) Take 1 (one) tablet by mouth once daily With one 50mg tab to =150mg dose 1 refill by 01/23/2023 * vitamin D, ergocalciferol, (Drisdol) 1.25 MG (29764 UT) capsule(Started 02/02/2022) Take 1 (one) capsule by mouth every 7 days * drospirenone-ethinyl estradiol (Meme) 3-0.02 MG tablet(Started 09/08/2023) Take 1 (one) tablet by mouth once daily * buPROPion XL 24hr (Wellbutrin-XL) 150 MG tablet(Started 09/03/2023) Take 1 (one) tablet by mouth every morning * cetirizine (ZyrTEC) 10 MG tablet Take 1 (one) tablet by mouth once daily * fluticasone propionate (Flonase) 50 MCG/ACT nasal spray [place] 2 (two) sprays into each nostril once daily * ibuprofen (Motrin) 600 MG tablet Take 1 (one) tablet by mouth every 6 hours as needed for Pain * azelastine (Astelin) 0.1 % nasal spray(Started 09/19/2023) [place] 1 (one) spray into each nostril 2 times daily 4 refills by 09/18/2024 Active Problems Problem Noted Date Diagnosed Date Dysfunction of both eustachian tubes 05/14/2021 Enlarged lymph node 03/28/2020 NICOLE III (cervical intraepith 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 (FLUBLOCK QUADRIVALENT; 18Y+) (RIV4)(Given 03/28/2020) Social History Tobacco Use Types Packs/Day Years [...] Comments Blood Pressure 120/82 06/15/2021 4:59 PM [employer] Pulse 98 06/15/2021 4:59 PM [employer] Temperature 37 C (98.6 F) 06/15/2021 4:59 PM [employer] Respiratory Rate 16 06/15/2021 4:59 PM [employer] Oxygen Saturation 97% 06/15/2021 4:59 PM [employer] Inhaled Oxygen Concentration - - Weight 108.9 kg (240 lb) 09/27/2023 9:35 AM CDT Height 170.2 cm (5' 7 ) 09/27/2023 9:35 AM CDT Body Mass Index 37.59 09/27/2023 9:35 AM CDT Procedures * AZ LARYNGOSCOPY,FLEX FIBER,DIAGNOSTIC(Performed 09/27/2023) Performed for Snoring, Seasonal allergic rhinitis due to pollen, Nasal obstruction * AZ NASAL ENDOSCOPY,DX(Performed 09/19/2023) Performed for Nasal obstruction * STREP A SCREEN - POINT OF CARE (AMB) STL(Performed 06/15/2021) Performed for Acute nasopharyngitis (common cold) * STREP A SCREEN - POINT OF CARE (AMB) STL(Performed 01/09/2021) Performed for Acute streptococcal pharyngitis * STREP A SCREEN - POINT OF CARE (AMB) STL(Performed 12/25/2020) Performed for Acute streptococcal pharyngitis * US SOFT TISSUE HEAD NECK(Performed 04/08/2020) Performed for Enlarged lymph node * HIV-1 RNA QUALITATIVE RFLXD(Performed 04/04/2020) Performed for Enlarged lymph node * HCV COMMENT(Performed 04/04/2020) Performed for Enlarged lymph node * T4 FREE(Performed 04/04/2020) Performed for Lipid screening, Vitamin D deficiency, Palpitations, Anxiety and depression * LIPID PROFILE(Performed 04/04/2020) Performed for Lipid screening, Vitamin D deficiency, Palpitations, Anxiety and depression * VITAMIN D 25-HYDROXY(Performed 04/04/2020) Performed for Lipid screening, Vitamin D deficiency, Palpitations, Anxiety and depression * HEPATITIS C AB W RFLX VERIFICATION(Performed 04/04/2020) Performed for Enlarged lymph node * HIV-1 HIV-2 ANTIBODY W REFLX(Performed 04/04/2020) Performed for Enlarged lymph node * TSH(Performed 04/04/2020) Performed for Enlarged lymph node * COMPREHENSIVE METABOLIC PANEL(Performed 04/04/2020) Performed for Enlarged lymph node * CBC W AUTO DIFFERENTIAL(Performed 04/04/2020) Performed for Enlarged lymph node * SARS-COV-2 (COVID-19) IN HOUSE(Performed 03/14/2020) Performed for Exposure to SARS-associated coronavirus * INFLUENZA A+B - POINT OF CARE (AMB)(Performed 08/05/2019) Performed for Acute nasopharyngitis * STREP A SCREEN - POINT OF CARE (AMB) STL(Performed 08/05/2019) Performed for Acute nasopharyngitis * FERRITIN(Performed 04/22/2013) * TRANSFERRIN(Performed 04/22/2013) * IRON BLOOD(Performed 04/22/2013) * CBC W/O DIFFERENTIAL(Performed 04/22/2013) Results * AZ LARYNGOSCOPY,FLEX FIBER,DIAGNOSTIC (09/27/2023 9:58 AM CDT) Narrative Sandeep Harper MD - 09/27/2023 9:58 AM CDT Sandeep Harper MD 09/27/2023 5:52 PM Procedure Note Anesthesia: Lidocaine 2% and Jairon-Synephrine 1/2% Endoscopy Type: Flexible Yhame-Hbanhdxizfqzhw-Rvyfvmbottef Procedure Details: Informed consent was obtained. The patient was placed in the sitting position. After topical anesthesia and decongestion, the 4 mm laryngoscope was passed. The nasal cavities, nasopharynx, oropharynx, hypopharynx, and larynx were all examined. Vocal cords were examined during respiration and phonation. The following findings were noted: Mild-moderate bilateral complex septal deviation/turbinate hypertrophy, otherwise normal nasal cavity. Adenoids obstructing 5% of postnasal space (normal less than 40%). Otherwise normal nasopharynx, oropharynx, hypopharynx, and larynx. Moderate improvement with jaw thrust. Good TVC mobility bilaterally. The patient tolerated procedure well. Complications: None Sandeep Harper MD PROCEDURE/MINOR S URGICAL ORDERABLES * AZ NASAL ENDOSCOPY,DX (09/19/2023 4:09 PM [employer]) Narrative Bhargav Flanagan MD - 09/19/2023 4:09 PM [employer] Bhargav Flanagan MD 09/19/2023 4:11 PM Procedure- rigid nasal endoscopy The procedure and alternatives were explained to the patient and verbal consent was obtained. The patient's bilateral nasal cavities were anesthetized with mixture of topical lidocaine and oxymetazoline. A zero degree rigid endoscope was advanced into both nasal cavities for evaluations. The patient tolerated the procedure well and there were no complications. Findings- There are no nasal masses, mucosal lesions, polyps, or purulent drainage. There is bowing of the midseptum left and right, spur along left nasal floor. Nasopharynx clear. Bhargav Flanagan MD PROCEDURE/MINOR SURG ICAL ORDERABLES * STREP A SCREEN - POINT OF CARE (AMB) STL (06/15/2021 5:13 PM [employer]) Only the most recent of4 resultswithin the time period is included. Strep A Rapid POCT Negative Negative [facility] Strep A Internal Control Present [facility] Lot # [id number] [facility] Expiration Date 12/12/22 [facility] Throat ENTIRE THROAT (SURFACE REGION OF NECK) / Unknown 06/15/2021 5:13 PM [employer] Ivette Alarcon FIELD SUPPORT TECHNICIAN-[employer] SALESPERSON LAB - POINT OF CA RE ORDERABLES [facility] [address] [place] [address], [facility] [phone] * US SOFT TISSUE HEAD NECK (04/08/2020 2:19 PM CDT) Anatomical Region Laterality Modality Head Ultrasound 04/08/2020 1:54 PM CDT Impressions 04/08/2020 2:39 PM CDT IMPRESSION: Nonspecific mildly prominent submental lymph node, may be reactive in nature. Dictated by Jodie Gallardo MD (resident care assistant). This report was approved by Jodie Gallardo on 04/08/2020 2:09 PM . I, Dr. JOHN BAUMANN have personally reviewed and interpreted this examination/study. This report was electronically signed by JOHN BAUMANN on 04/08/2020 2:39 PM . Narrative 04/08/2020 2:39 PM CDT EXAMINATION: Limited soft tissue of the neck sonogram HISTORY: R59.9: Enlarged lymph node (submental) 29-year-old female with enlarged submental lymph node, which appeared concurrently with nasal congestion. Infectious disease workup, including COVID-19, influenza, hepatitis C, and HIV, was negative. COMPARISON: No prior study is available for comparison. FINDINGS: Grayscale and color Doppler sonographic images were obtained of the region of interest, as directed by the patient. Brian scale images demonstrate prominent midline submental lymph node measuring 1.6 x 0.7 x 1.6 cm. There is increased hilar vascularity of this lymph node. Procedure Note John Baumann MD - 04/08/2020 EXAMINATION: Limited soft tissue of the neck sonogram HISTORY: R59.9: Enlarged lymph node (submental) 29-year-old female with enlarged submental lymph node, which appeared concurrently with nasal congestion. Infectious disease workup, including COVID-19, influenza, hepatitis C, and HIV, was negative. COMPARISON: No prior study is available for comparison. FINDINGS: Grayscale and color Doppler sonographic images were obtained of theregion of interest, as directed by the patient. Brian scale images demonstrate prominent midline submental lymph node measuring 1.6 x 0.7 x 1.6 cm.There is increased hilar vascularity of this lymph node. IMPRESSION: Nonspecific mildly prominent submental lymph node, may be reactive in nature. Dictated by Jodie Gallardo MD (resident care assistant). This report was approved by Jodie Gallardo on 04/08/2020 2:09 PM . I, Dr. JOHN BAUMANN have personally reviewed and interpreted this examination/study. This report was electronically signed by JOHN BAUMANN on 04/08/2020 2:39PM . Blaise Davidson MD US ORDERABLES * HEPATITIS C AB W RFLX VERIFICATION (04/04/2020 2:45 PM CDT) Hepatitis C Antibody <0.1 0.0 - 0.9 s/co ratio 04/06/2020 11:09 AM CDT [facility] ([facility]) Blood BLOOD SPECIMEN / Unknown Lab Venipuncture / Unknown 04/04/2020 2:45 PM CDT 04/04/2020 3:21 PM CDT [facility] ([facility]) - 04/06/2020 11:09 AM CDT Performed at: [address] [id number] Portable Track Crew Chief: Domenico Gallagher PhD, Phone: [phone] Blaise Davidson MD LAB - CHEMISTRY [place] Performing Organization Address City/[facility]/ZIP Co de Phone Number [facility] ([facility]) [address] [place] [address], [facility] * HIV-1 RNA QUALITATIVE RFLXD (04/04/2020 2:45 PM CDT) HIV-1 RNA Qualitative Negative Negative 04/07/2020 11:06 PM CDT [facility] ([facility]) Comment:Negative for HIV-1 R NA Final Interpretation Comment 04/07/2020 11:06 PM CDT [facility] ([facility]) Comment: HIV antibodies were not confirmed and HIV 1 RNA was not detected. No laboratory evidence of HIV 1 infection. Follow-up testing for HIV 2 should be performed if clinically indicated. Blood BLOOD SPECIMEN / Unknown Lab Venipuncture / Unknown 04/04/2020 2:45 PM CDT 04/04/2020 3:22 PM CDT [facility] ([facility]) - 04/07/2020 11:06 PM CDT Performed at: [address] [place] [id number] Portable Track Crew Chief: Lesa Buck MD, Phone: [phone] Performed at: [address] [id number] Portable Track Crew Chief: Domenico Gallagher PhD, Phone: [phone] Blaise Davidson MD LAB - CHEMISTRY [place] Performing Organization Address [facility]/ZIP Co de Phone Number [facility]) [address] [place] [address], [facility] * HCV COMMENT (04/04/2020 2:45 PM CDT) Comment Comment 04/06/2020 11:09 AM CDT [facility] ([facility]) Comment: Non reactive HCV antibody screen is consistent with no HCV infection, unless recent infection is suspected or other evidence exists to indicate HCV infection. Blood BLOOD SPECIMEN / Unknown Lab Venipuncture / Unknown 04/04/2020 2:45 PM CDT 04/04/2020 3:21 PM CDT Narrative [facility] ([facility]) - 04/06/2020 11:09 AM CDT Performed at: [address] [id number] Portable Track Crew Chief: Domenico Gallagher PhD, Phone: [phone] Blaise Davidson MD LAB - CHEMISTRY [place] Performing Organization Address City/[facility]/ZIP Co de Phone Number [facility] ([facility]) [address] [place] [phone] [place] [address] * HIV-1 HIV-2 ANTIBODY W REFLX (04/04/2020 2:45 PM CDT) [facility] HIV-1 Antibody Negative Negative 04/07/2020 11:06 PM CDT [facility] ([facility]) HIV-2 Antibody Negative Negative 04/07/2020 11:06 PM CDT [facility] ([facility]) Interpretation Negative 04/07/2020 11:06 PM CDT [facility] ([facility]) Comment:See RNA Reflex. Blood BLOOD SPECIMEN / Unknown Lab Venipuncture / Unknown 04/04/2020 2:45 PM CDT 04/04/2020 3:22 PM CDT Narrative [facility] ([facility]) - 04/07/2020 11:06 PM CDT Performed at: [address] [id number] Portable Track Crew Chief: Domenico Gallagher PhD, Phone: [phone] Blaise Davidson MD LAB - SEROLOGY ORDER GAB Performing Organization Address City/[facility]/ZIP Co de Phone Number [facility] ([facility]) [address] [place] [phone], [place] * (ABNORMAL) VITAMIN D 25-HYDROXY (04/04/2020 2:45 PM CDT) Pathologist [facility] Vitamin D, 25 Hydroxy 29.0(L) See comment: ng/mL 04/04/2020 4:09 PM T [facility] Comment: The recommendations for 25-Hydroxy Vitamin D clinical decision points are as follows: Deficient: <20.0 ng/mL Insufficient: 20.0 - 29.9 ng/mL Sufficient: > or =30.0 ng/mL If the 25-Hydroxy Vitamin D results are inconsitent with clinical evidence, it is recommended that follow-up testing using a method such as LC/MS/MS be performed to confirm the result. Reference: The Endocrine Society Clinical Practice Guidelines. 2011 Blood BLOOD SPECIMEN / Unknown Lab Venipuncture / Unknown 04/04/2020 2:45 PM CDT 04/04/2020 3:22 PM CDT Savanah Yolanda FIELD SUPPORT TECHNICIAN-[employer] SALESPERSON LAB - CHEMISTRY O RDERABLES [facility] [address] [place] [phone], [facility] [phone] * (ABNORMAL) CBC WITH DIFFERENTIAL (04/04/2020 2:45 PM CDT) WBC 7.4 3.5 - 10.5 10 3/uL 04/04/2020 3:46 PM CDT [facility] RBC 4.23 3.90 - 5.00 10 6/uL 04/04/2020 3:46 PM [facility] Hemoglobin 11.3(L) 12.0 - 15.5 g/dL 04/04/2020 3:46 PM [facility] Hematocrit 36.8 35.0 - 45.0 % 04/04/2020 3:46 PM [facility] MCV 87.0 81.0 - 97.0 fL 04/04/2020 3:46 PM T [facility] MCH 26.7(L) 28.0 - 34.0 pg 04/04/2020 3:46 PM [facility] MCHC 30.7(L) 32.0 - 36.0 g/dL 04/04/2020 3:46 PM [facility] Platelet Count 261 150 - 400 10 3/uL 04/04/2020 3:46 PM [facility] RDW-SD 55.5(H) 36.0 - 50.0 fL 04/04/2020 3:46 PM [facility] RDW-CV 17.2(H) 11.2 - 14.8 % 04/04/2020 3:46 PM [facility] MPV 10.1 9.3 - 12.8 fL 04/04/2020 3:46 PM [facility] nRBC Absolute 0.00 0 10 3/uL 04/04/2020 3:46 PM [facility] nRBC Auto 0.0 0 /100 WBC 04/04/2020 3:46 PM [facility] Neutrophils % 37.5 35.0 - 70.0 % 04/04/2020 3:46 PM [facility] Lymphocytes % 53.7 19.7 - 55.1 % 04/04/2020 3:46 PM [facility] Monocytes % 5.8 3.0 - 15.0 % 04/04/2020 3:46 PM [facility] Eosinophils % 1.6 0.0 - 6.0 % 04/04/2020 3:46 PM [facility] Basophil % 1.1 0.0 - 1.5 % 04/04/2020 3:46 PM [facility] Neutrophils Absolute 2.8 1.6 - 7.0 10 3/uL 04/04/2020 3:46 PM [facility] Lymphocyte Absolute 4.0(H) 0.8 - 2.9 10 3/uL 04/04/2020 3:46 PM [facility] Monocytes Absolute 0.43 0.14 - 0.66 10 3/uL 04/04/2020 3:46 PM [facility] Eosinophils Absolute 0.12 0.00 - 0.45 10 3/uL 04/04/2020 3:46 PM [facility] Basophils Absolute 0.08(H) 0.00 - 0.06 10 3/uL 04/04/2020 3:46 PM [facility] Immature Granulocytes % 0.3 0.0 - 1.0 % 04/04/2020 3:46 PM [facility] Blood BLOOD SPECIMEN / Unknown Lab Venipuncture / Unknown 04/04/2020 2:45 PM CDT 04/04/2020 3:21 PM CDT Blaise Davidson MD LAB - HEMATOLOGY ORD ERABLES [facility] [address] [place] [address], [facility] [phone] * (ABNORMAL) COMPREHENSIVE METABOLIC PANEL (04/04/2020 2:45 PM CDT) BUN 8 7 - 26 mg/dL 04/04/2020 3:52 PM [facility] Creatinine 0.7 0.6 - 1.2 mg/dL 04/04/2020 3:52 PM [facility] Sodium 139 136 - 145 mmol/L 04/04/2020 3:52 PM [facility] Potassium 4.0 3.5 - 4.5 mmol/L 04/04/2020 3:52 PM [facility] Chloride 103 98 - 107 mmol/L 04/04/2020 3:52 PM [facility] CO2 28 22 - 29 mmol/L 04/04/2020 3:52 PM [facility] Glucose 127(H) 70 - 115 mg/dL 04/04/2020 3:52 PM [facility] Calcium 9.0 8.4 - 10.2 mg/dL 04/04/2020 3:52 PM [facility] Protein Total 8.1 6.0 - 8.3 g/dL 04/04/2020 3:52 PM [facility] Albumin 3.9 3.4 - 5.0 g/dL 04/04/2020 3:52 PM [facility] Bilirubin Total 0.3 0.2 - 1.2 mg/dL 04/04/2020 3:52 PM [facility] Alkaline Phosphatase 96 40 - 150 Units/L 04/04/2020 3:52 PM [facility] ALT 34 0 - 55 Units/L 04/04/2020 3:52 PM [facility] AST 26 5 - 34 Units/L 04/04/2020 3:52 PM [facility] Anion Gap 12 8 - 18 04/04/2020 3:52 PM [facility] BUN/Creatinine Ratio 11 7 - 23 04/04/2020 3:52 PM CDT [facility] Osmolality Calculated 288 270 - 300 mOsm/kg 04/04/2020 3:52 PM CDT [facility] Albumin/Globulin Ratio 0.9(L) 1.1 - 2.3 04/04/2020 3:52 PM CDT [facility] eGFR >60 >60 mL/min/1.7 3 m2 04/04/2020 3:52 PM CDT [facility] Blood BLOOD SPECIMEN / Unknown Lab Venipuncture / Unknown 04/04/2020 2:45 PM CDT 04/04/2020 3:22 PM CDT Blaise Davidson MD LAB - CHEMISTRY [place] [facility] [address] [place] [address], [place] [phone] * TSH (04/04/2020 2:45 PM CDT) TSH 0.779 0.350 - 4.940 uIU/mL 04/04/2020 4:09 PM CDT [facility] Blood BLOOD SPECIMEN / Unknown Lab Venipuncture / Unknown 04/04/2020 2:45 PM CDT 04/04/2020 3:22 PM CDT Blaise Davidson MD LAB - CHEMISTRY [place] [facility] [address] [place] [address], [place] [phone] * T4 FREE (04/04/2020 2:45 PM CDT) T4 Free 0.8 0.7 - 1.5 ng/dL 04/04/2020 4:09 PM CDT [facility] Blood BLOOD SPECIMEN / Unknown Lab Venipuncture / Unknown 04/04/2020 2:45 PM CDT 04/04/2020 3:22 PM CDT Savanah Guerrero APRN-YOLANDA LAB - CHEMISTRY O RDERABLES [address] [address], [facility] [phone] * (ABNORMAL) LIPID PROFILE (04/04/2020 2:45 PM CDT) Cholesterol Total 196 <200 mg/dL 04/04/2020 3:52 PM CDT [facility] HDL 37(L) >40 mg/dL 04/04/2020 3:52 PM CDT [facility] Comment: ATP III Classification of HDL Cholesterol: <40 mg/dL: Considered a major risk factor. >60 mg/dL: Considered a negative risk factor. LDL Calculated 87 <100 mg/dL 04/04/2020 3:52 PM CDT [facility] Comment: ATP III Classification of LDL Cholesterol: <100 mg/dL: Optimal 100 - 129 mg/dL: Near Optimal/Above Optimal 130 - 159 mg/dL: Borderline High 160 - 189 mg/dL: High >190 mg/dL: Very High Triglycerides 358(H) <150 mg/dL 04/04/2020 3:52 PM CDT [facility] Comment: ATP III Classification of Triglycerides: <150 mg/dL: Normal 150 - 199 mg/dL: Borderline High 200 - 400 mg/dL: High >500 mg/dL: Very High Blood BLOOD SPECIMEN / Unknown Lab Venipuncture / Unknown 04/04/2020 2:45 PM CDT 04/04/2020 3:22 PM CDT Savanah Guerrero FIELD SUPPORT TECHNICIAN-[employer] SALESPERSON LAB - CHEMISTRY O RDERABLES [address] [address], [facility] [phone] * SARS-COV-2 (COVID-19) IN HOUSE (03/14/2020 10:23 AM CDT) COVID-19 PCR Not detected Not detected, Invalid 03/14/2020 9:47 PM CDT [facility] Microbiology SPECIMEN FROM NASOPHARYNGEAL STRUCTURE / Unknown Collection / Unknown 03/14/2020 10:23 AM CDT 03/14/2020 10:23 AM CDT Narrative [facility] - 03/14/2020 9:47 PM CDT This Real Time RT-PCR assay was developed and its performance characteristics determined by [facility]. This test has been authorized by the Food and Drug administration (FDA)under an Emergency Use Authorization (EUA). This test has been validated in accordance with the FDA's guidance document Policy for Diagnostic Testing in Laboratories Certified to perform High Complexity Testing under CLIA prior to Emergency Use Authorization for Coronavirus Disease-2019 during the Public Health Emergency issued on September 12, 2019. FDA independent review of this validation is pending. This test is only authorized for the duration of time the declaration that circumstances exist justifying the authorization of emergency use of in vitro diagnostic tests for detection of SARS-CoV-2 virus and/or diagnosis of COVID-19 infection under section 564(b)(1) of the Act, 21 U.S.C 360bbb-3 (b)(1), unless the authorization is terminated or revoked sooner. David Figueroa MD LAB - MICROBIO LOGY ORDERABLES [facility] [address] [place], [place] [address], [facility] [phone] * INFLUENZA A+B - POINT OF CARE (AMB) (08/05/2019) Influenza A Antigen Rapid Negative Negative Influenza B Antigen Rapid Negative Negative Influenza Internal Control negative NEGATIVE - POSITIVE Influenza Lot Number [id number] Influenza Expiration Date 10/15/2020 Other NASOPHARYNGEAL SWAB / Unknown 08/05/2019 Kody Munoz FIELD SUPPORT TECHNICIAN-[employer] SALESPERSON LAB - POINT OF CARE ORDERABLES * TRANSFERRIN (04/22/2013 12:05 PM CDT) Transferrin 322 174 - 382 mg/dL [facility] Transferrin Saturation % 18 16 - 50 % [facility] 04/22/2013 12:0 5 PM CDT 04/22/2013 12:50 PM CDT Adri Hsu MD LAB - CHEMISTRY [place] [address] [phone] * (ABNORMAL) CBC W/O DIFFERENTIAL (04/22/2013 12:05 PM CDT) WBC 5.9 3.5 - 10.5 10^3/uL [facility] RBC 4.43 3.90 - 5.00 10^6/uL [facility] Hemoglobin 12.1 12.0 - 15.5 g/dL [facility] Hematocrit 37.3 35.0 - 45.0 % [facility] MCV 84.2 81.0 - 97.0 FL [facility] MCH 27.3(L) 28.0 - 34.0 PG [facility] MCHC 32.4 32.0 - 36.0 G/DL [facility] [facility] Platelet 273 150 - 400 10^3/uL [facility] RDW 13.9 11.2 - 14.8 % [facility] RDW-SD 42.8 36 - 50 FL [facility] MPV 10.8 9.3 - 12.8 FL [facility] 04/22/2013 12:0 5 PM CDT 04/22/2013 12:50 PM CDT Adri Hsu MD LAB - HEMATOLOGY JULIO CESAR JACOBSON [address] [phone] * IRON BLOOD (04/22/2013 12:05 PM CDT) Iron 71 40 - 150 mcg/dL [facility] 04/22/2013 12:0 5 PM CDT 04/22/2013 12:50 PM CDT Adri Hsu MD LAB - CHEMISTRY [facility] BURK [address] [phone] * FERRITIN (04/22/2013 12:05 PM CDT) Ferritin 32 13 - 204 ng/mL [facility] 04/22/2013 12:0 5 PM CDT 04/22/2013 12:50 PM CDT Adri Hsu MD LAB - CHEMISTRY [facility] [address] [phone] Care Teams Design Analyst Relationship Specialty Start Date End Date Gracie Lee PARyanC [address] [place] [id number] PCP - General Physician Data Power Consultant 09/27/23
--- OUTSIDE RECORDS SUMMARY | 2024-09-04 08:36 | XMS_ITS | Encounter Summary ---
Author Organization [facility] Health Address [address] [facility] [place] [address] Care Team Providers Care Fbi Profiler Name Role Phone Savanah Guerrero Primary Care Provider [phone] Gracie Lee PA-C Primary Care Provider [phone] Reason for Visit * Reason Onset Date Comments MEDICATION REFILL 03/16/2022 Encounter Details Date Type Department Care Team (Late st Contact Info) Description 03/16/2022 Refill [facility] [address] [place] [address], [place] [phone] Savanah Guerrero APRN-CNP [address] [place] [phone] MEDICATION REFILL Social History Tobacco Use Types [...] disorder documented in this encounter Care Teams Fbi Profiler Relationship Specialty Start Date End Date Savanah Guerrero APRN-MANUFACTURE SPECIALIST PCP - General 08/26/19 09/26/23 Gracie Lee PA-C [address] [place] [address] PCP - General Physician Carbon Furnace Operator 09/27/23 documented as of this encounter
--- OUTSIDE RECORDS SUMMARY | 2024-09-04 08:36 | XMS_ITS | Encounter Summary ---
Author Organization [facility] Health Address [address] [facility] [place] [address] Care Team Providers Care Lead Mechanic Name Role Phone Savanah Guerrero Primary Care Provider [phone] Gracie Lee PA-C Primary Care Provider [phone] Reason for Visit * Reason Onset Date Comments MEDICATION REFILL 03/26/2022 Encounter Details Date Type Department Care Team (Late st Contact Info) Description 03/26/2022 Refill [facility] [address] [place] [address], [place] [phone] Savanah Guerrero APRN-CNP [address] [place] [phone] MEDICATION REFILL Social History Tobacco Use Types [...] disorder documented in this encounter Care Teams Lead Mechanic Relationship Specialty Start Date End Date Savanah Guerrero APRN-GEAR SHAPER SET UP OPERATOR PCP - General 08/26/19 09/26/23 Gracie Lee PA-C [address] [place] [address] PCP - General Physician Research Electrician 09/27/23 documented as of this encounter
--- OUTSIDE RECORDS SUMMARY | 2024-09-04 08:36 | XMS_ITS | Clinical Summary ---
Author Organization [facility] Address [address] [place] [address] Care Team Providers Care Superintendent Pressure Name Role Phone None, Provider MD Primary Care Provider Unavaila ble Allergies Active Allergy Reactions Criticality Noted Date Comments Darke Rash Low 10/10/2017 CEDAR AND PINE Dust Mite Extract Rash Low 10/10/2017 Sulfa Antibiotics Rash Low 10/10/2017 RASH AND SWELLING Medications vitamin, low iron, 27-0.8 MG tablet Take 1 tablet by mouth every evening. Active sertraline 100 MG tabletIndications:U ndifferentiated Anxiety and Depression Disorder(Inactive) Take 100 mg by mouth every evening. Active cholecalciferol (VITAMIN D3) 5000 units Tab Take 5,000 Units by mouth every evening. Active Probiotic Product (PROBIOTIC ADVANCED) Cap Take 1 tablet by mouth every evening. Patient states she take Rx probiotic. Active ondansetron 4 MG disintegrating tablet Take 1 tablet (4 mg total) by mouth every 8 (eight) hours as needed. 20 tablet 9 Active hydrocodone-acetami nophen 5-325 MG tabletIndications:A cute Pain < 3 Day Supply Take 1 tablet by mouth every 4 (four) hours as needed for Pain (max 6 tabs a day). Indications: Acute Pain < 3 Day Supply 14 tablet 9 Active Active Problems Problem Noted Date Diagnosed Date Status post repeat low transverse secti on 11/13/2017 and not yet delivered (HHS/HCC) 018 Anemia affecting in third trimester (H HS/HCC) 11/11/2017 Maternal obesity syndrome in third trimester (HH S/HCC) 11/11/2017 Rh negative state in antepartum period ([facility]) 11/11/2017 Generalized anxiety disorder 11/11/2017 NICOLE III (cervical intraepith elial neoplasia grade III) with severe dysplasia 11/11/2017 Family History Medical History Relation Comments BORDERLINE PERSONALITY DISORDER Father Diabetes Father TYPE 2 Hyperlipidemia Father Hypertension Father MANIC DEPRESSIVE Father Heart Attack Maternal Grandmother PACEMAKER Stroke Maternal Grandmother Hyperlipidemia Mother ALZHEIMER Paternal Grandfather Diabetes Paternal Grandfather TYPE 2 Stroke Paternal Grandfather SEVERAL ALZHEIMER Paternal Grandmother Relation Status Comments Father Maternal Grandfather Alive Maternal Grandmother Mother Paternal Grandfather Paternal Grandmother Alive Social History Tobacco Use Types Packs/Day Years Used Date Smoking Tobacco: Former Cigarettes 0.5 4 0 07/15/2009 - 07/15/2013 Smokeless Tobacco: Never Alcohol Use Standard Drinks/Week Comments No 0 (1 standard drink = 0.6 oz pur e alcohol) Comments No Sex and Gender Information Value Date Recorded Sex Assigned at Not on file Legal Sex Female 3:41 PM NIGHT CUSTODIAN Gender Identity Not on file Sexual Orientation Not on file Last Filed Vital Signs Vital Sign Reading Time Taken Comments Blood Pressure 110/52 05/03/2019 11:28 AM CDT Pulse 66 05/03/2019 11:28 AM CDT Temperature 37.2 C (98.9 F) 05/03/2019 9:05 AM CDT Respiratory Rate 16 05/03/2019 11:28 AM CDT Oxygen Saturation 98% 05/03/2019 11:28 AM CDT Inhaled Oxygen Concentration - - Weight 111.1 kg (245 lb) 05/03/2019 9:05 AM CDT Height 170.2 cm (5' 7 ) 05/03/2019 9:05 AM CDT Body Mass Index 38.37 05/03/2019 9:05 AM CDT Plan of Treatment Health Maintenance Due Date Last Done Comments Cervical Cancer Screening Pa p Smear (Age 30 to 64) Every 3 Years 1989 Annual Physical 1992 Hepatitis C 2007 DTaP, Tdap and Td Vaccines ( 1 - Tdap) 2008 Hepatitis B Vaccines (1 of 3 - 19+ 3-dose series) 2008 Cervical Cancer Screening Pa p with HPV Testing (Age 30 to 64) Every 5 Years 2019 Cervical Cancer Screening with HPV 2019 COVID-19 Vaccine (1 2023-2 5 season) 2024 Influenza Adult (#1) 2024 HPV Vaccines Aged Out No longer eligi ble based on patient's age to complete this topic Meningococcal B Vaccine Aged Out No l onger eligible based on patient's age to complete this topic Meningococcal Vaccine Aged Out No elda guero eligible based on patient's age to complete this topic Pneumococcal Vaccine: Pediat rics (0 to 5 Years) and At-Risk Patients (6 to 64 Years) Aged Out No longer eligible b ased on patient's age to complete this topic RSV Immunizations Under 20 Months Aged Out No longer eligible based on patient's age to complete this topic Medical Devices Implanted Type Area Shoes Salesperson Device Identifier Shelf Expiration Date Model / Serial / Lot Santi Implanted:Qty: 1 on 11/11/2017 by Liss Bennett DO at [facility] N/A: Uterus [employer] 01/09/2021 / / [id number] Description:Santi Absorbabl e Hemostatic [place] [address] [facility] Advance Directives * Full Code (Latest Code Status on File) Date Activated Date Inactivated Comments 11/11/2017 12:23 PM 11/13/2017 8:33 PM Care Teams Superintendent Pressure Relationship Specialty Start Date End Date None, Provider, PCP - General 07/03/18
--- OUTSIDE RECORDS SUMMARY | 2024-09-04 08:36 | XMS_ITS | Encounter Summary ---
Author Organization [facility] Health Address [address] [place] [address] Care Team Providers Care Communications Attendant Name Role Phone Savanah Guerrero Primary Care Provider [phone] Gracie Lee PA-C Primary Care Provider Reason for Visit * Reason Onset Date Comments MEDICATION REFILL 09/04/2021 Encounter Details Date Type Department Care Team (Late st Contact Info) Description 09/04/2021 Refill [facility] [address] [place] [address], [place] [phone] Savanah Guerrero APRN-CNP [address] [place] [address] [phone] MEDICATION REFILL Social History Tobacco Use Types [...] on file documented as of this encounter Miscellaneous Notes * Telephone Encounter - Mauqueta Soheila - 09/04/2021 8:25 AM CST Buzz Monahan Requested Prescriptions Pending Prescriptions Disp Refills ??? MICROGESTIN FE 08/03 1-20 MG-MCG tablet 28 tablet 2 Sig: Take 1 (one) tablet by mouth once daily Allergies Allergen Reactions ??? Sulfa Drugs Swelling ??? Cedarwood Oil Rash CEDAR AND PINE ??? Dust Mite Extract Rash Last Refill:05/15/2021 Qty Dispense:28 # of Refills:2 Last OV:05/15/2021 Next OV:none STFEEDING PEER COUNSELOR documented in this encounter Plan of Treatment Not on file documented as of this encounter Visit Diagnoses Diagnosis Uses control Anxiety and depression Dysthymic disorder documented in this encounter Care Teams Communications Attendant Relationship Specialty Start Date End Date Savanah Guerrero APRN-YOLANDA PCP - General 08/26/19 09/26/23 Gracie Lee PARyanC [address] [place] [address] PCP - General Physician Seed Corn Manager Production 09/27/23 documented as of this encounter
--- NOTE | 2024-09-04 08:47 | ED.URI ---
HPI - URI/Sore Throat General Chief Complaint: Upper Respiratory Infection Stated Complaint: cold symptoms Time Seen by Provider: 09/04/24 08:47 Source: patient Mode of arrival: ambulatory Limitations: no limitations History of Present Illness HPI Narrative: 33-year-old female presents with complaint sore throat, postnasal drainage, sinus pressure, nasal congestion, sinus headaches, bilateral ear pressure for 4-5 days. Afebrile. Taking Zyrtec and Flonase daily. All systems reviewed and negative except as noted above. Related Data Home Medications ?Medication ?Instructions ?Recorded ?Confirmed ?Last Taken ?Type cetirizine 10 mg capsule (Zyrtec) 10 mg PO DAILY PRN allergies 10/24/22 07/17/24 Unknown History Allergies Allergy/AdvReac Type Severity Reaction Status Date / Time Sulfa (Sulfonamide AdvReac Intermediate Swelling Verified 09/04/24 08:33 Antibiotics) Review of Systems Review of Systems: CONSTITUTIONAL: Denies fever, chills, or sweats. EYES: Denies visual changes, redness, or discharge. ENT: Reports rhinorrhea, congestion, sinus pressure, postnasal drainage, sore throat, bilateral otalgia. CARDIOVASCULAR: Denies chest pain, palpitations, or edema. RESPIRATORY: Denies cough or dyspnea. GASTROINTESTINAL: Denies abdominal pain, nausea, vomiting, or diarrhea. GENITOURINARY: Denies dysuria or hematuria. SKIN: Denies rash or itching. MUSCULOSKELETAL: Denies back pain, joint pain, or myalgia. NEUROLOGIC: Denies headache, numbness, or weakness. PSYCHIATRIC: Denies anxiety or depression. All other systems reviewed are negative, except as documented in HPI. [facility] Past Medical History Medical History (Updated 09/04/24 @ 08:56 by Heather Salgado NP) Morbid obesity due to excess calories Major depression in partial remission IBS (irritable bowel syndrome) Anxiety and depression Surgical History Surgical History History of dental surgery Previous section X2 Family History Family History Father Hypertension Mother Hypertension Grandparent Diabetes mellitus Cerebrovascular accident Acute myocardial infarction Other Family hx of colon cancer Social History Social History Smoking status: Current some day smoker Tobacco type: e-cigarettes/vaping Alcohol intake: former Drinks per week: 0 Substance use: former Substance use type: marijuana Do You Feel Safe in your Home?: Yes Lack of Transportation: No Lack of Food: Never True Current Housing: I Have Housing Concerned About Future Housing: No Difficulty Paying Gas/Electric Bills: No Difficulty Paying for Meds: No Currently Unemployed: YES Education: Trade/Vocational Certificate Difficulty w/ Childcare or Family Care: No Living arrangements: with family Occupation/Education: student Gender identity (if verbalized by the patient): Female Sexual Orientation (if Verbalized by the Patient): Straight or Heterosexual Comments At time of signature, agree with nursing past medical, surgical, social and family history. There is no relevant family history pertinent to the presenting complaint. Exam Narrative: GENERAL: This is a well-nourished, well-developed patient, in no apparent distress. HEAD: normocephalic, atraumatic. EYES: PERRL. Sclera clear/white. Vision is grossly intact. EARS: External ears normal, auditory canals clear and without drainage, Erythema, fluid bilateral TMs with bulging. No perforation bilaterally. Hearing grossly intact. NOSE: External nose normal with congestion, purulent nasal drainage, ear and swelling to bilateral nares. Frontal tenderness on palpation bilaterally. THROAT: Mucous membranes moist, Mild erythema with postnasal drainage. Mild swelling without exudates. NECK: Neck supple, non-tender without lymphadenopathy, masses or thyromegaly. CARDIOVASCULAR: Regular rate and rhythm without murmurs, gallops, or rubs. RESPIRATORY: Clear to auscultation. Breath sounds equal bilaterally. No wheezes, rales, or rhonchi. SKIN: warm, Dry, intact with no suspicious lesions or rash, good texture and turgor. NEURO: awake, alert, and oriented to person, place and time. There were no obvious focal neurologic abnormalities. EXTREMITIES: No joint tenderness, effusion, or edema noted. Course Course Level of Care: Express Care Visit Vital Signs Vital signs: Vital Signs Temperature 36.6 C 09/04/24 08:50 Pulse Rate 84 09/04/24 08:50 Respiratory Rate 18 09/04/24 08:50 Blood Pressure 115/80 09/04/24 08:50 Pulse Oximetry 99 09/04/24 08:50 Oxygen Delivery Room Air 09/04/24 08:50 Temperature 36.6 C 09/04/24 08:50 Pulse Rate 84 09/04/24 08:50 Respiratory Rate 18 09/04/24 08:50 Blood Pressure 115/80 09/04/24 08:50 Pulse Oximetry 99 09/04/24 08:50 Oxygen Delivery Room Air 09/04/24 08:50 Reviewed MDM - URI/Sore Throat MDM Narrative Medical decision making narrative: negative COVID, influenza and strep test. Strep culture ordered. Will treat with antibiotic for bilateral serous otitis media. Please be advised this is a medical document. It is intended for vyxd-li-awdz communication. It is written in medical language and may contain unfamiliar abbreviations or verbiage. Medical documents are intended to carry relevant information, facts as evident, and the clinical opinion of the practitioner at the time of the encounter. This report may have been done utilizing a voice recognition system. Attempts have been made to correct errors. However, there may be uncorrected grammatical, spelling, and recognition errors present. The file time of this note does not necessarily represent the time of service. Differential Diagnosis Differential diagnosis: Likely upper respiratory infection, otitis media, sinusitis, viral infection and pharyngitis Lab Data Labs: Lab Results 09/04/24 09/04/24 Range/Units 08:55 09:01 POC Influenza A Ag Negative (Negative) POC Influenza B Ag Negative (Negative) POC SARS CoV-2 Ag Negative (Negative) POC Grp A Strep Screen Negative (Negative) Discharge Plan Discharge Clinical Impression: Acute serous otitis media of both ears, Sinusitis, acute Patient Disposition: Home, Self-Care Condition: Stable Instructions: Antibiotic Form, Sinusitis (ED) Additional Instructions: your COVID, influenza and strep test was negative today. Take medications as prescribed. Continue Zyrtec and Flonase daily. Take ibuprofen every 6-8 hours as needed for pain and fever. Drink at least 64 oz of water a day. Place cool mist humidifier in bedroom where you sleep. Follow-up with your doctor if symptoms are not improving. Patient Language: Malay Prescriptions: New amoxicillin 875 mg tablet 875 mg PO Q12H 10 Days Qty: 20 0RF methylprednisolone [Medrol (Kun)] 4 mg tablets,dose pack See Rx Instructions PO .COMPLEX Qty: 21 0RF Rx Instructions: orally per package directions No Action Zyrtec 10 mg capsule 10 mg PO DAILY PRN (Reason: allergies) fluticasone propionate [Allergy Relief (fluticasone)] 50 mcg/actuation spray,suspension 2 spray intranasal DAILY Qty: 16 0RF Rx Instructions: administer into each nostril naltrexone 50 mg tablet 50 mg PO DAILY Qty: 90 0RF sertraline 100 mg tablet See Rx Instructions .ROUTE .COMPLEX Qty: 135 3RF Dose Instruction: TAKE 1 AND 1/2 TABLETS BY MOUTH DAILY Rx Instructions: TAKE 1 AND 1/2 TABLETS BY MOUTH DAILY bupropion HCl 150 mg tablet extended release 24 hr See Rx Instructions .ROUTE .COMPLEX Qty: 90 3RF Dose Instruction: TAKE 1 TABLET BY MOUTH EVERY MORNING Rx Instructions: TAKE 1 TABLET BY MOUTH EVERY MORNING drospirenone-ethinyl estradiol [Loryna (28)] 3-0.02 mg tablet 1 tablet PO DAILY Qty: 28 11RF Follow-up/Referrals: Lokesh Omer MD [Primary Care Provider] - Time of Disposition: 08:57
[2024-09-04 08:50] VITALS: BP 115/80; PULSE 84; RESP 18; TEMP 36.6; O2SAT 99
[2024-09-04 08:55] LABS: EDSTREPNEGPOS1 Negative (Negative)
[2024-09-04 09:03] LABS: EDCOVIDSCREEN Negative (Negative); EDINFLUASCREEN Negative (Negative); EDINFLUBSCREEN Negative (Negative)
== END 2024-09-04 08:58 | disposition home or self-care (01) ==
PROVIDERS: Emergency Provider Nurse Practitioner Family; PCP Family Medicine
DX: H65.03 Acute serous otitis media, bilateral (principal); J01.90 Acute sinusitis, unspecified; F17.290 Nicotine dependence, other tobacco product, uncomplicated; Z20.822 Contact with and (suspected) exposure to COVID-19
CPT/HCPCS: 87081; 87426; 87804; 87880; 99213; G0463

== ENCOUNTER 2025-05-24 08:11 | Emergency (ER) | payer OTHER, SELFPAY ==
--- OUTSIDE RECORDS SUMMARY | 2025-05-24 08:15 | XMS_ITS | Encounter Summary ---
Author Organization [facility] Address [address] [facility] [place] [address] Care Team Providers Care Welding Machine Operator Ultrasonic Name Role Phone Savanah Guerrero Primary Care Provider [phone] Gracie Lee PA-C Primary Care Provider [phone] Reason for Visit * Reason Onset Date Comments MEDICATION REFILL 08/14/2022 Encounter Details Date Type Department Care Team (Late st Contact Info) Description 08/14/2022 Refill [facility] [address] [place] [address], [place] [phone] Savanah Guerrero APRN-CNP [address] [place] [phone] MEDICATION REFILL Social History Tobacco Use Types Packs/Day Years Used Date Smoking Tobacco: Former Cigarettes Smokeless Tobacco: Never Comments:lightly with period remission Alcohol Use Standard Drinks/Week Comments Not Currently 0.8 (1 standard drink = 0.6 oz p ure alcohol) rare PHQ-2 Answer Date Recorded PHQ2 TOTAL SCORE 0 12/25/2020 Comments No Sex and Gender Information Value Date Recorded Sex Assigned at Not on file Legal Sex Female 6:38 PM ATV MECHANIC Gender Identity Not on file Sexual Orientation Not on file 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
--- OUTSIDE RECORDS SUMMARY | 2025-05-24 08:15 | XMS_ITS | Encounter Summary ---
Author Organization [facility] Address [address] [facility] [place] [address] Care Team Providers Care Seasoner Name Role Phone Savanah Guerrero Primary Care Provider [phone] Gracie Lee PA-C Primary Care Provider [phone] Reason for Visit * Reason Onset Date Comments MEDICATION REFILL 03/26/2022 Encounter Details Date Type Department Care Team (Late st Contact Info) Description 03/26/[address] 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
--- OUTSIDE RECORDS SUMMARY | 2025-05-24 08:15 | XMS_ITS | Encounter Summary ---
Author Organization [facility] Address [address] [facility] [place] [address] Care Team Providers Care Software Licensing Analyst Name Role Phone Savanah Guerrero Primary Care Provider [phone] Gracie Lee PA-C Primary Care Provider [phone] Reason for Visit * Reason Onset Date Comments MEDICATION REFILL 09/04/2021 Encounter Details Date Type Department Care Team (Late st Contact Info) Description 09/04/2021 Refill [facility] [address] [place] [address], [place] [phone] Savanah Guerrero APRN-CNP [address] [place] [phone] MEDICATION REFILL Social History Tobacco Use Types [...] on file Legal Sex Female 6:38 PM STOCKROOM SUPERVISOR Gender Identity Not on file Sexual Orientation Not on file 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 MICROGESTIN FE 08/03 1-20 MG-MCG tablet 28 tablet 2 Sig: Take 1 (one) tablet by mouth once daily Allergies Allergen Reactions ??? Sulfa Drugs Swelling ??? Cedarwood Oil Rash CEDAR [place] PINE ??? Dust Mite Extract Rash Last Refill:05/15/2021 Qty Dispense:28 # of Refills:2 Last OV:05/15/2021 Next OV:none KROOM SUPERVISOR documented in this encounter Plan of Treatment Not on file documented as of this encounter Visit Diagnoses Diagnosis Uses control Anxiety and depression Dysthymic disorder documented in this encounter Care Teams Software Licensing Analyst Relationship Specialty Start Date End Date Savanah Guerrero APRN-YOLANDA PCP - General 08/26/19 09/26/23 Gracie Lee, PARyanC [address] [place] [id number] PCP - General Physician Marriage Performer 09/27/23 documented as of this encounter
--- OUTSIDE RECORDS SUMMARY | 2025-05-24 08:15 | XMS_ITS | Clinical Summary ---
Author Organization [facility] Address [address] [place] [address] Care Team Providers Care Director Medical Writing Name Role Phone Gracie Lee PA-C Primary Care Provider [phone] Source Comments [facility],non-owned Affiliates and Associated Physician Practices is amultiple site organization consisting of ambulatory clinics and hospital sitesin [place], [place], [place] and [place]. This disclosure is being madepursuant to the Care Everywhere program and may not contain all information available regarding this patient. Last updated 18.[facility] Allergies Active Allergy Reactions Criticality Noted Date Comments Cedarwood Oil Rash Medium 10/10/2017 [place] Dust Mite Extract Rash Medium 10/10/2017 Sulfa Drugs Swelling Low 04/30/2012 Medications * This document contains information received from the source organization and may not represent a complete record from that organization. * Be aware that medications may not be up to date on this document. Alwaysverify current medications with the patient. hydrOXYzine hcl (ATARAX) 25 MG tabletIndication s:Anxiety Take 1 (one) tablet by mouth 4 times daily as needed Reasons: Feeling Anxious 30 tablet 12/07/2020 Active sertraline (ZOLOFT) 50 MG tabletIndication s:Anxiety and depression Take 1 (one) tablet by mouth once daily With one 100 mg tab to = 150 mg dose 90 tablet 1 01/23/2022 Active sertraline (ZOLOFT) 100 MG tabletIndication s:Anxiety and depression Take 1 (one) tablet by mouth once daily With one 50mg tab to =150mg dose 90 tablet 1 01/23/2022 Active vitamin D, ergocalciferol, (Drisdol) 1.25 MG (02659 UT) capsule Take 1 (one) capsule by mouth every 7 days 02/02/2022 Active drospirenone-eth inyl estradiol (Meme) 3-0.02 MG tablet Take 1 (one) tablet by mouth once daily 09/08/2023 Active buPROPion XL 24hr (Wellbutrin-XL) 150 MG tablet Take 1 (one) tablet by mouth every morning 09/03/2023 Active cetirizine (ZyrTEC) 10 MG tablet Take 1 (one) tablet by mouth once daily Active fluticasone propionate (Flonase) 50 MCG/ACT nasal spray Mcintosh 2 (two) sprays into each nostril once daily Active ibuprofen (Motrin) 600 MG tablet Take 1 (one) tablet by mouth every 6 hours as needed for Pain Active azelastine (Astelin) 0.1 % nasal sprayIndications :Nasal obstruction Mcintosh 1 (one) spray into each nostril 2 [...] and not yet delivered 11/11/2017 09/02/2019 Immunizations Immunization Administration Dates Next Due INFLUENZA VACCINE 06/13/2019 [...] on file Legal Sex 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 Gender Identity Not on file Sexual Orientation Not on file 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 Not on file Not on file Not on file Last Filed Vital Signs Vital Sign Reading Time Taken Comments Blood Pressure 120/82 06/15/2021 4:59 PM STATION SUPERVISOR Pulse 98 06/15/2021 4:59 PM STATION SUPERVISOR Temperature 37 C (98.6 F) 06/15/2021 4:59 PM STATION SUPERVISOR Respiratory Rate 16 06/15/2021 4:59 PM STATION SUPERVISOR Oxygen Saturation 97% 06/15/2021 4:59 PM STATION SUPERVISOR Inhaled Oxygen Concentration - - Weight 108.9 kg (240 lb) 09/27/2023 9:35 AM CDT Height 170.2 cm (5' 7) 09/27/2023 9:35 AM CDT Body Mass Index 37.59 09/27/2023 9:35 AM CDT Plan of Treatment Health Maintenance Due Date Last Done Comments DTAP/TDAP/TD VACCINES (1 - Tdap) 2008 HEPATITIS B VACCINE (1 of 3 - 19+ 3-dose series) 2008 PAP SMEAR 2010 HPV VACCINE (1 - 3-dose SCDM series) 2016 DEPRESSION SCREENING 07/15/2024 COVID-19 VACCINE (1 - 2023-2 5 season) 2025 INFLUENZA VACCINE (#1) 2025 0, 06/13/2019 ZOSTER VACCINE (1 of 2) 2039 HEPATITIS C SCREENING Completed 04/04/2020 HIV SCREENING Completed 04/04/2020, 04/18/2017 HIB VACCINE Aged Out No longer eligi ble based on patient's age to complete this topic MENINGOCOCCAL (Group B) VACCINE SHARED DECISION-MAKING Aged Out No longer eligible based on patient's age to complete this topic MENINGOCOCCAL GROUPS A/C/Y/W VACCINE Aged Out No longer eligible b [...] s/co ratio 04/06/2020 11:09 AM CDT [facility] ([facility]) Blood BLOOD SPECIMEN / Unknown Lab Venipuncture / Unknown 04/04/2020 2:45 PM CDT 04/04/2020 3:21 PM CDT Narrative [facility] ([facility]) - 04/06/2020 11:09 AM CDT Performed at: [address] [place] [address] [address] [place], [place] [id number] Multifocal Lens Assembler: Domenico Gallagher PhD, Phone: [phone] us Blaise Davidson MD LAB - CHEMISTRY ORDERABLES Fi nal Result [facility] ([facility]) [id number] * HIV-1 HIV-2 ANTIBODY W REFLX (04/04/2020 2:45 PM CDT) Pathologist [facility] HIV-1 Antibody Negative Negative 04/07/2020 11:06 PM CDT [facility] ([facility]) HIV-2 Antibody Negative Negative 04/07/2020 11:06 PM CDT [facility] ([facility]) Interpretation Negative 04/07/2020 11:06 PM CDT [facility] ([facility]) Comment:See RNA Reflex. Blood BLOOD SPECIMEN / Unknown Lab Venipuncture / Unknown 04/04/2020 2:45 PM CDT 04/04/2020 3:22 PM CDT Narrative [facility] ([facility]) - 04/07/2020 11:06 PM CDT Performed at: [facility] [id number] Multifocal Lens Assembler: Domenico Gallagher PhD, Phone: [phone] Blaise Davidson MD LAB - SEROLOGY ORDERABLES Fin al Result [facility] ([facility]) [address] from Last 3 Months or Most Recently Relevant to Health Maintenance Insurance [facility] [place] [address] [place] [address] [facility] * Guarantor: Starla Castillo Account Type Relation to Patient Date of Phone Billing Address Personal/Family [address] [place] [address] Care Teams Director Medical Writing Relationship Specialty Start Date End Date Gracie Lee, PARyanC [address] [place] [address] [place] [id number] PCP - General Physician [place] 09/27/23
--- OUTSIDE RECORDS SUMMARY | 2025-05-24 08:15 | XMS_ITS | Encounter Summary ---
Author Organization [facility] Address [address] [place] [address] Care Team Providers Care Supervisor Hand Workers Name Role Phone Savanah Guerrero Primary Care Provider [phone] Gracie Lee PA-C Primary Care Provider [phone] Reason for Visit * Reason Onset Date Comments MEDICATION REFILL 03/16/2022 Encounter Details Date Type Department Care Team (Late st Contact Info) Description 03/16/2022 Refill [facility] [address] [place] [address], [place] [address] Savanah Guerrero APRN-CNP [address] [place] [phone] MEDICATION REFILL Social History Tobacco Use Types [...] on file 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 Gender Identity Not on file Sexual Orientation Not on file 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
[2025-05-24 08:23] VITALS: BP 138/78; PULSE 94; RESP 16; TEMP 36.6; O2SAT 100
--- NOTE | 2025-05-24 08:27 | ED_ITS ---
HPI - URI/Sore Throat General Chief Complaint: Upper Respiratory Infection Stated Complaint: congestion / Sore throat / Ear Pain Time Seen by Provider: 05/24/25 08:27 Source: patient Mode of arrival: ambulatory Limitations: no limitations History of Present Illness HPI Narrative: Starla is a 34-year-old female patient presenting to the clinic today with complaints of nasal congestion, sore throat, postnasal drip, and ear pain x3 days. She reports has taken Mucinex and airborne to help alleviate her symptoms. Currently rates her pain a 11/21. States her boys are also home sick with cold symptoms. Denies any chest pain or shortness of breath. Related Data Home Medications ?Medication ?Instructions ?Recorded ?Confirmed ?Last Taken ?Type cetirizine 10 mg capsule (Zyrtec) 10 mg PO DAILY PRN a llergies 10/24/22 05/24/25 Unknown History Allergies Allergy/AdvReac Type Severity Reaction Status Date / Time Sulfa (Sulfonamide AdvReac Intermediate Swelling Verified 05/24/25 08:29 Antibiotics) Review of Systems Review of Systems: Pertinent positives per HPI. Patient denies any fever, chills, rash, headache, visual changes, dizziness, shortness of breath, chest pain, palpitations, nausea, vomiting, diarrhea, constipation, abdominal pain, or any urinary issues. [facility] Past Medical History Medical History Morbid obesity due to excess calories Major depression in partial remission IBS (irritable bowel syndrome) Anxiety and depression Surgical History Surgical History History of dental surgery Previous section X2 Family History Family History Father Hypertension Mother Hypertension Grandparent Diabetes mellitus Cerebrovascular accident Acute myocardial infarction Other Family hx of colon cancer Social History Social History Tobacco type: e-cigarettes/vaping Alcohol intake: former Drinks per week: 0 Substance use: former Substance use type: marijuana Do You Feel Safe in your Home?: Yes Lack of Transportation: No Lack of Food: Never True Current Housing: I Have Housing Concerned About Future Housing: No Difficulty Paying Gas/Electric Bills: No Difficulty Paying for Meds: No Currently Unemployed: YES Education: Trade/Vocational Certificate Difficulty w/ Childcare or Family Care: No Living arrangements: with family Occupation/Education: student Gender identity (if verbalized by the patient): Female Sexual Orientation (if Verbalized by the Patient): Straight or Heterosexual Comments At the time of my signature, I reviewed and agree with the nursing past medical, surgical, social, and family history. There is no relevant family history pertinent to the patient complaint. Exam Narrative: General: Well-developed, obese, in no apparent distress Head: Normocephalic, atraumatic Eyes: Pupils equally round and reactive to light bilaterally, EOM intact, sclera and conjunctive clear, no discharge, lids normal Ears: TMs intact and clear, ear canals clear, no drainage, grossly hearing normal. Nose: Nares patent, clear nasal discharge, no inflammation, no sinus tenderness. Mouth: Oral pharynx without lesions or masses, good dentition, MMM. Neck: Supple, trachea midline, no enlargement of anterior or posterior cervical nodes, no thyroid masses or goiter palpable. Cardio: Regular rate and rhythm, s1 and s2 normal, no murmur appreciated. Resp: Clear to auscultation bilaterally, no rhonchi, rales, wheezing or rubs Course Course Emergency Course: Portions of this record may have been created with voice recognition software. Level of Care: Express Care Visit Vital Signs Vital signs: Vital Signs Temperature 36.6 C 05/24/25 08:23 Pulse Rate 94 05/24/25 08:23 Respiratory Rate 16 05/24/25 08:23 Blood Pressure 138/78 05/24/25 08:23 Pulse Oximetry 100 05/24/25 08:23 Oxygen Delivery Room Air 05/24/25 08:23 Temperature 36.6 C 05/24/25 08:23 Pulse Rate 94 05/24/25 08:23 Respiratory Rate 16 05/24/25 08:23 Blood Pressure 138/78 05/24/25 08:23 Pulse Oximetry 100 05/24/25 08:23 Oxygen Delivery Room Air 05/24/25 08:23 Vital signs reviewed MDM - URI/Sore Throat MDM Narrative Medical decision making narrative: At the time of visit patient is resting comfortably on the exam table. Patient appears to be nontoxic. Complaints of nasal congestion, sore throat, postnasal drip, and ear pain x3 days. She reports has taken Mucinex and airborne to help alleviate her symptoms. Currently rates her pain a 5/10. States her boys are also home sick with cold symptoms. Denies any chest pain or shortness of breath. On exam patient has bilateral TM congestion, clear nasal drainage, mild inferior turbinate inflammation, oral pharynx red with postnasal drip, lung sounds are clear, heart rates regular rate and rhythm. Strep test was ordered. Labs: Strep test was negative. We will send strep for culture. Plan: I suspect patient has URI/postnasal drip. We will send strep for culture. Supportive measures were discussed with the patient and they voiced understanding discharge instructions and agrees to treatment plan. Return precautions reviewed Differential Diagnosis Differential diagnosis: Likely upper respiratory infection, otitis media, sinusitis, viral infection, bronchitis, influenza, pharyngitis and other (COVID) Lab Data Labs: Lab Results 05/24/25 Range/Units 08:28 POC Grp A Strep Screen Negative (Negative) Discharge Plan Discharge Clinical Impression: PND (post-nasal drip) URI (upper respiratory infection) Qualifiers: URI type: unspecified URI Qualified Code(s): J06.9 - Acute upper respiratory infection, unspecified Patient Disposition: Home Condition: Stable Instructions: Antibiotic Form, Cold Symptoms (ED), Postnasal Drip (DC) Additional Instructions: Strep test was negative in the clinic today. We will send strep culture, if the test comes back positive we will contact you and place you on antibiotics at that time May take DayQuil/NyQuil for cold/flu symptoms Increase fluids and stay well hydrated May take Tylenol or motrin as directed on bottle for pain/fever May use Flonase 1 spray in each nare daily May take OTC antihistamines such as Zyrtec or Claritin daily as directed on bottle May apply Vicks vapor rub to chest to open sinuses Sinus rinses for congestion Cepacol spray, cough drops, throat lozenges, warm tea with honey/lemon, gargle salt water to soothe throat BRAT diet for diarrhea Clear liquids x 24 hours then advance as tolerated for nausea/vomiting Go to the ED if you develop a worsening in your condition- high fever not controlled by Tylenol or Motrin, dehydration, weakness, lethargy, shortness of breath, or chest pain. Follow up with your PCP in 3-5 days if symptoms persist. Patient Language: Romansh Prescriptions: No Action Zyrtec 10 mg capsule 10 mg PO DAILY PRN (Reason: allergies) fluticasone propionate [Allergy Relief (fluticasone)] 50 mcg/actuation spray,suspension 2 spray intranasal DAILY Qty: 16 0RF Rx Instructions: administer into each nostril sertraline 200 mg capsule 200 mg PO DAILY Qty: 90 1RF naproxen 250 mg tablet 250 mg PO BID PRN (Reason: pain) Qty: 30 1RF cyclobenzaprine 5 mg tablet 5 mg PO TID PRN (Reason: muscle spasm) Qty: 30 1RF drospirenone-ethinyl estradiol [Loryna (28)] 3-0.02 mg tablet 1 tablet PO DAILY Qty: 28 11RF bupropion HCl 150 mg tablet extended release 24 hr See Rx Instructions .ROUTE .COMPLEX Qty: 90 3RF Dose Instruction: TAKE 1 TABLET BY MOUTH EVERY MORNING Rx Instructions: TAKE 1 TABLET BY MOUTH EVERY MORNING ondansetron HCl 4 mg tablet 4 mg PO Q8H PRN (Reason: nausea and vomiting) Qty: 30 0RF Follow-up/Referrals: Lokesh Omer MD [Primary Care Provider, Family Practice] Time of Disposition: 08:35 Quality NIHSS Nursing Documentation ED NIHSS nursing documentation: reviewed/agree
[2025-05-24 08:30] LABS: EDSTREPNEGPOS1 Negative (Negative)
== END 2025-05-24 08:37 | disposition home or self-care (01) ==
PROVIDERS: Emergency Provider Nurse Practitioner Family; PCP Family Medicine
DX: R09.82 Postnasal drip (principal); J06.9 Acute upper respiratory infection, unspecified; F17.290 Nicotine dependence, other tobacco product, uncomplicated; E66.01 Morbid (severe) obesity due to excess calories; Z68.36 Body mass index [BMI] 36.0-36.9, adult; F32.4 Major depressive disorder, single episode, in partial remission; F41.9 Anxiety disorder, unspecified
CPT/HCPCS: 87081; 87880; 99213; G0463

== ENCOUNTER 2025-07-05 16:09 | Emergency (ER) | payer OTHER, SELFPAY ==
[2025-07-05 16:20] VITALS: BP 107/69; PULSE 125; RESP 18; TEMP 38.5; O2SAT 99
--- NOTE | 2025-07-05 16:42 | ED_ITS ---
HPI - URI/Sore Throat General Chief Complaint: Upper Respiratory Infection Stated Complaint: flu/URI Source: patient Mode of arrival: ambulatory Limitations: no limitations History of Present Illness HPI Narrative: This is a 34 y/o female that presents to the urgent care for complaints of cough, fever, sore throat, body aches and fatigue. patient states she started having symptoms last pm. she took Tylenol. She did present to work today continue with cough and sore throat. Her sinuses reportedly were draining constantly. Patient reports a very harsh deep cough. patient Denies any nausea, vomiting or diarrhea. Denies any chest pain or shortness of breath. Denies any headache or dizziness currently. Patient reports she did have a fever of over 102 she did take Tylenol just prior to arrival to the urgent care. MD elicited complaint: fever, cough, sore throat, rhinorrhea, nasal congestion and sinus pain Onset (ago): day(s) (2) Consistency: constant Severity: mild Exacerbating factors: nothing Relieving factors: cough suppressant Context: sick contacts Associated symptoms: denies other symptoms Treatments prior to arrival: acetaminophen and cold medicine Related Data Home Medications ?Medication ?Instructions ?Recorded ?Confirmed ?Last Taken ?Type cetirizine 10 mg capsule (Zyrtec) 10 mg PO DAILY PRN a llergies 10/24/22 05/24/25 Unknown History Allergies Allergy/AdvReac Type Severity Reaction Status Date / Time Sulfa (Sulfonamide AdvReac Intermediate Swelling Verified 07/05/25 16:15 Antibiotics) Review of Systems Review of Systems: All systems reviewed & are unremarkable except as noted in HPI and below PMFSH Past Medical History Medical History Morbid obesity due to excess calories Major depression in partial remission IBS (irritable bowel syndrome) Anxiety and depression Surgical History Surgical History History of dental surgery Previous section X2 Family History Family History Father Hypertension Mother Hypertension Grandparent Diabetes mellitus Cerebrovascular accident Acute myocardial infarction Other Family hx of colon cancer Social History Social History Smoking status: Current some day smoker Tobacco type: e-cigarettes/vaping Alcohol intake: former Drinks per week: 0 Substance use: former Substance use type: marijuana Lack of Transportation: No Lack of Food: Never True Current Housing: I Have Housing Concerned About Future Housing: No Difficulty Paying Gas/Electric Bills: No Difficulty Paying for Meds: No Currently Unemployed: YES Education: Trade/Vocational Certificate Difficulty w/ Childcare or Family Care: No Living arrangements: with family Occupation/Education: student Gender identity (if verbalized by the patient): Female Sexual Orientation (if Verbalized by the Patient): Straight or Heterosexual Exam Const: General: ill appearing Nutritional Appearance: well nourished Orientation/consciousness: patient oriented x3 Limitations: no limitations HENMT: Head: normal to inspection Ears: external ears normal Face/Nose/Sinus: Nasal discharge present mucoid Face and sinus: sinus tenderness maxillary Mouth: Yes Normal oral and palatal mucosa present Teeth and gingiva: dentition normal Throat: posterior oropharynx normal Eyes: Conjunctivae: conjunctivae normal Pupils: Equal, round and reactive pupils present EOM: EOMs intact bilaterally Neck: Neck: normal visual inspection and no lymphadenopathy Chest: Chest palpation & inspection: normal inspection of the chest Resp: Effort & Inspection: normal respiratory effort Auscultation: clear to auscultation bilaterally Cardio: Rate: tachycardic Rhythm: regular rhythm GI: GI Palp: Yes Soft to palpation Auscultation: normal bowel sounds Skin: General skin exam: normal color Rashes: no rashes Wounds: no wounds Neuro: General: patient oriented x3 Cranial nerves: Yes Nystagmus not present Speech: normal speech Gait exam (Neuro): Normal gait present Extrem: General: normal to inspection and no clubbing, cyanosis or edema Psych: Mental Status: mental status grossly normal Affect: normal affect Attitude: cooperative Course Course Emergency Course: This is a 34 y/o female that presents to the urgent care for complaints of cough, fever, sore throat, body aches and fatigue. patient states she started having symptoms last pm. she took Tylenol. She did present to work today continue with cough and sore throat. Her sinuses reportedly were draining constantly. Patient reports a very harsh deep cough. patient Denies any nausea, vomiting or diarrhea. Denies any chest pain or shortness of breath. Denies any headache or dizziness currently. Patient reports she did have a fever of over 102 she did take Tylenol just prior to arrival to the urgent care. vital signs stable ordered influenza a and B testing Ordered COVID testing Influenza, COVID negative. Educated on results, exam findings and treatment. She verbalized understanding. Educated the patient to increased fluids, rest, continue with symptomatic management: - cough and cold medications- cough drops for sore throat and cough- vicks vapor rub- mucinex for congestion, continue with antibiotic as prescribed, Follow-up with primary care provider next 1-2 days for further evaluation and exam, Return to the emergency department or urgent care for any worrisome signs or symptoms insert questions to her satisfaction, she is agreeable to this plan. Patient denies any further needs or concerns to be addressed prior to discharge Level of Care: Express Care Visit Vital Signs Vital signs: Vital Signs Temperature 101.3 F H 07/05/25 16:20 Pulse Rate 125 H 07/05/25 16:20 Respiratory Rate 18 07/05/25 16:20 Blood Pressure 107/69 07/05/25 16:20 Pulse Oximetry 99 07/05/25 16:20 Oxygen Delivery Room Air 07/05/25 16:20 Temperature 101.3 F H 07/05/25 16:20 Pulse Rate 125 H 07/05/25 16:20 Respiratory Rate 18 07/05/25 16:20 Blood Pressure 107/69 07/05/25 16:20 Pulse Oximetry 99 07/05/25 16:20 Oxygen Delivery Room Air 07/05/25 16:20 MDM MDM Narrative Medical decision making narrative: This is a 34 y/o female that presents to the urgent care for complaints of cough, fever, sore throat, body aches and fatigue. patient states she started having symptoms last pm. she took Tylenol. She did present to work today continue with cough and sore throat. Her sinuses reportedly were draining constantly. Patient reports a very harsh deep cough. patient Denies any nausea, vomiting or diarrhea. Denies any chest pain or shortness of breath. Denies any headache or dizziness currently. Patient reports she did have a fever of over 102 she did take Tylenol just prior to arrival to the urgent care. vital signs stable ordered influenza a and B testing Ordered COVID testing Influenza, COVID negative. Educated on results, exam findings and treatment. She verbalized understanding. Educated the patient to increased fluids, rest, continue with symptomatic management: - cough and cold medications- cough drops for sore throat and cough- vicks vapor rub- mucinex for congestion, continue with antibiotic as prescribed, Follow-up with primary care provider next 1-2 days for further evaluation and exam, Return to the emergency department or urgent care for any worrisome signs or symptoms insert questions to her satisfaction, she is agreeable to this plan. Patient denies any further needs or concerns to be addressed prior to discharge Differential Diagnosis Differential Diagnosis: viral syndrome, sinusitis, strep Medical Records I have reviewed the following patient records and this information was taken into consideration when formulating the assessment and plan.: previous labs Lab Data MDM Lab Attestation statement: I personally reviewed the patient's lab results. Lab results narrative: influenza a and B negative COVID negative Labs: Lab Results 07/05/25 Range/Units 16:44 POC Influenza A Ag Negative (Negative) POC Influenza B Ag Negative (Negative) POC SARS CoV-2 Ag Negative (Negative) Discharge Plan Discharge Clinical Impression: Upper respiratory infection Qualifiers: URI type: unspecified URI Qualified Code(s): J06.9 - Acute upper respiratory infection, unspecified Patient Disposition: Home Condition: Stable Instructions: Antibiotic Form, Sinusitis (ED), Upper Respiratory Infection (ED) Additional Instructions: increased fluids rest continue with symptomatic management: - cough and cold medications - cough drops for sore throat and cough - vicks vapor rub - mucinex for congestion continue with antibiotic as prescribed Follow-up with primary care provider next 1-2 days for further evaluation and exam Return to the emergency department or urgent care for any worrisome signs or symptoms Patient Language: Greenlandic Prescriptions: New amoxicillin-pot clavulanate 875-125 mg tablet 1 tablet PO Q12H Qty: 14 0RF No Action Zyrtec 10 mg capsule 10 mg PO DAILY PRN (Reason: allergies) fluticasone propionate [Allergy Relief (fluticasone)] 50 mcg/actuation spray,suspension 2 spray intranasal DAILY Qty: 16 0RF Rx Instructions: administer into each nostril sertraline 200 mg capsule 200 mg PO DAILY Qty: 90 1RF naproxen 250 mg tablet 250 mg PO BID PRN (Reason: pain) Qty: 30 1RF cyclobenzaprine 5 mg tablet 5 mg PO TID PRN (Reason: muscle spasm) Qty: 30 1RF drospirenone-ethinyl estradiol [Loryna (28)] 3-0.02 mg tablet 1 tablet PO DAILY Qty: 28 11RF bupropion HCl 150 mg tablet extended release 24 hr See Rx Instructions .ROUTE .COMPLEX Qty: 90 3RF Dose Instruction: TAKE 1 TABLET BY MOUTH EVERY MORNING Rx Instructions: TAKE 1 TABLET BY MOUTH EVERY MORNING ondansetron HCl 4 mg tablet 4 mg PO Q8H PRN (Reason: nausea and vomiting) Qty: 30 0RF Follow-up/Referrals: Lokesh Omer MD [Primary Care Provider, Family Practice] Time of Disposition: 16:51
[2025-07-05 16:50] LABS: EDCOVIDSCREEN Negative (Negative); EDINFLUASCREEN Negative (Negative); EDINFLUBSCREEN Negative (Negative)
--- OUTSIDE RECORDS SUMMARY | 2025-07-05 17:12 | XMS_ITS | Encounter Summary ---
Author Organization [facility] Address [address] [place] [address] Care Team Providers Care Waistband Setter Name Role Phone Savanah Guerrero Primary Care Provider [phone] Gracie Lee PA-C Primary Care Provider [phone] Reason for Visit * Reason Onset Date Comments MEDICATION REFILL 09/04/2021 Encounter Details Date Type Department Care Team (Late st Contact Info) Description 09/04/2021 Refill Formerly [facility] [address] [place] [address], [place] [phone] Savanah Guerrero APRN-CNP [address] [place] [phone] MEDICATION REFILL Social History Tobacco Use Types [...] on file Legal Sex Female 6:38 PM NURSING EDUCATOR Gender Identity Not on file Sexual Orientation Not on file 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 MICROGESTIN FE 08/03 1-20 MG-MCG tablet 28 tablet 2 Sig: Take 1 (one) tablet by mouth once daily Allergies Allergen Reactions ??? Sulfa Drugs Swelling ??? [place]edar[place] Oil Rash [place] ??? Dust Mite Extract Rash Last Refill:05/15/2021 Qty Dispense:28 # of Refills:2 Last OV:05/15/2021 Next OV:none ING EDUCATOR documented in this encounter Plan of Treatment Not on file documented as of this encounter Visit Diagnoses Diagnosis Uses control Anxiety and depression Dysthymic disorder documented in this encounter Care Teams Waistband Setter Relationship Specialty Start Date End Date Savanah Guerrero APRN-YOLANDA PCP - General 08/26/19 09/26/23 Gracie Lee, PARyanC [address] [place] [id number] PCP - General Physician Grant Manager 09/27/23 documented as of this encounter
--- OUTSIDE RECORDS SUMMARY | 2025-07-05 17:12 | XMS_ITS | Clinical Summary ---
Author Organization [facility] Address [address] [place] [address] Care Team Providers Care Grievance And Appeals Coordinator Name Role Phone Gracie Lee PA-C Primary Care Provider Source Comments [facility],non-owned Affiliates and Associated Physician Practices is amultiple site organization consisting of ambulatory clinics and hospital sitesin [place], [place], [place] and [place]. This disclosure is being madepursuant to the Care Everywhere program and may not contain all information available regarding this patient. Last updated 18.[facility] Allergies Active Allergy Reactions Criticality Noted Date [...] Active vitamin D, ergocalciferol, (Drisdol) 1.25 MG (44248 UT) capsule Take 1 (one) capsule by [...] fluticasone propionate (Flonase) 50 MCG/ACT nasal spray [place] 2 (two) sprays into each nostril once daily Active ibuprofen (Motrin) 600 MG tablet Take 1 (one) tablet by mouth every 6 hours as needed for Pain Active azelastine (Astelin) 0.1 % nasal sprayIndications :Nasal obstruction [place] 1 (one) spray into each nostril 2 [...] on file Legal Sex Female 6:38 PM MIXER BLENDER Gender Identity Not on file Sexual Orientation Not on file 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 Not on file Not on file Last Filed Vital Signs Vital Sign Reading Time Taken Comments Blood Pressure 120/82 06/15/2021 4:59 PM MIXER BLENDER Pulse 98 06/15/2021 4:59 PM MIXER BLENDER Temperature 37 C (98.6 F) 06/15/2021 4:59 PM MIXER BLENDER Respiratory Rate 16 06/15/2021 4:59 PM MIXER BLENDER Oxygen Saturation 97% 06/15/2021 4:59 PM MIXER BLENDER Inhaled Oxygen Concentration - - Weight 108.9 [...] DEPRESSION SCREENING 07/15/2024 COVID-19 VACCINE (1 - 2024-2 6 season) 2025 INFLUENZA VACCINE (#1) 2025 0, [...] s/co ratio 04/06/2020 11:09 AM CDT [facility] ([facility]) Blood BLOOD SPECIMEN / Unknown Lab Venipuncture / Unknown 04/04/2020 2:45 PM CDT 04/04/2020 3:21 PM CDT Narrative [facility] ([facility]) - 04/06/2020 11:09 AM CDT Performed at: [address] [place] [address] [address] [place], [place] [id number] Control Officer Manager: Domenico Gallagher PhD, Phone: [phone] us Blaise Davidson MD LAB - CHEMISTRY ORDERABLES Fi nal Result [facility] ([facility]) [id number] * HIV-1 HIV-2 ANTIBODY W REFLX (04/04/2020 2:45 PM CDT) Pathologist [facility] HIV-1 Antibody Negative Negative 04/07/2020 11:06 PM CDT [facility] ([facility]) HIV-2 Antibody Negative Negative 04/07/2020 11:06 PM CDT [facility] ([facility]) Interpretation Negative 04/07/2020 11:06 PM CDT [facility] ([facility]) Comment:See RNA Reflex. Blood BLOOD SPECIMEN / Unknown Lab Venipuncture / Unknown 04/04/2020 2:45 PM CDT 04/04/2020 3:22 PM CDT Narrative [facility] ([facility]) - 04/07/2020 11:06 PM CDT Performed at: [facility] [id number] Control Officer Manager: Domenico Gallagher PhD, Phone: [phone] Blaise Davidson MD LAB - SEROLOGY ORDERABLES Fin al Result [facility] ([facility]) [id number] from Last 3 Months or Most Recently Relevant to Health Maintenance Insurance [facility] [place] [address] [place] [address] [facility] * Guarantor: Starla Castillo Account Type Relation to Patient Date of Phone Billing Address Personal/Family [address] [place] [address] Care Teams Grievance And Appeals Coordinator Relationship Specialty Start Date End Date Gracie Lee, PARyanC [address] [place] [address] [place] [id number] PCP - General Physician Gas Pump Attendant 09/27/23
--- OUTSIDE RECORDS SUMMARY | 2025-07-05 17:12 | XMS_ITS | Encounter Summary ---
Author Organization [facility] Address [address] [facility] [place] [address] Care Team Providers Care Senior Loss Control Specialist Name Role Phone Savanah Guerrero Primary Care Provider [phone] Gracie Lee PA-C Primary Care Provider [phone] Reason for Visit * Reason Onset Date Comments MEDICATION REFILL 08/14/2022 Encounter Details Date Type Department Care Team (Late st Contact Info) Description 08/14/2022 Refill [facility] Community Medicine [address] [place] [address], [place] [phone] Savanah Guerrero APRN-CNP [address] [place] [phone] MEDICATION REFILL Social History Tobacco Use Types [...] on file Legal Sex Female 6:[address] MAINTENANCE CREW WORKER Gender Identity Not on file Sexual Orientation Not on file 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
--- OUTSIDE RECORDS SUMMARY | 2025-07-05 17:12 | XMS_ITS | Encounter Summary ---
Author Organization [facility] Address [address] [facility] [place] [address] Care Team Providers Care Tone Regulator Name Role Phone Savanah Guerrero Primary Care Provider [phone] Gracie Lee PA-C Primary Care Provider [phone] Reason for Visit * Reason Onset Date Comments MEDICATION REFILL 03/26/2022 Encounter Details Date Type Department Care Team (Late st Contact Info) Description 03/26/2022 Refill [facility] Community Medicine [address] [place] [address], [place] [address] Savanah Guerrero APRN-CNP [address] [place] [phone] MEDICATION REFILL Social History Tobacco Use Types [...] on file Legal Sex Female 6:38 PM RESOURCE MANAGEMENT SPECIALIST Gender Identity Not on file Sexual Orientation Not on file 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
--- OUTSIDE RECORDS SUMMARY | 2025-07-05 17:12 | XMS_ITS | Encounter Summary ---
Author Organization [facility] Address [address] [facility] [place] [address] Care Team Providers Care Plating Inspector Name Role Phone Savanah Guerrero Primary Care Provider [phone] Gracie Lee PA-C Primary Care Provider [phone] Reason for Visit * Reason Onset Date Comments MEDICATION REFILL 03/16/2022 Encounter Details Date Type Department Care Team (Late st Contact Info) Description 03/16/2022 Refill [facility] Family [facility] Community Medicine [address] [place] [address], [place] [address] Savanah Guerrero APRN-CNP [address] [place] [phone] MEDICATION REFILL Social History Tobacco Use Types [...] on file Legal Sex Female 6:38 PM GENERAL MERCHANDISE MANAGER Gender Identity Not on file Sexual Orientation Not on file 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
== END 2025-07-05 16:53 | disposition home or self-care (01) ==
PROVIDERS: Emergency Provider Nurse Practitioner Family; PCP Family Medicine
DX: J06.9 Acute upper respiratory infection, unspecified (principal); Z20.822 Contact with and (suspected) exposure to COVID-19; F17.290 Nicotine dependence, other tobacco product, uncomplicated; E66.01 Morbid (severe) obesity due to excess calories; F41.9 Anxiety disorder, unspecified; F32.4 Major depressive disorder, single episode, in partial remission
CPT/HCPCS: 87426; 87804; 99213; G0463